=== PATIENT | female | born 1940 | race Caucasian/White ===

== ENCOUNTER 2017-09-18 12:57 | Emergency (ER) | payer MEDICARE ==
--- NOTE | 2017-09-18 13:45 | RAD ---
TWO VIEW CHEST: History: Cough. Comparison: 10-09-16 FINDINGS: Infiltrate noted in the anterior mid left lung on the prior study is not seen today. Lungs appear addison ar. Heart and mediastinum unremarkable. Osseous structures are unremarkable. IMPRESSION: Unremarkable chest. POS: [facility]
[2017-09-18 14:10] LABS: #Lymphocytes 0.4 thou/uL (1.20-3.40); #Monocytes 0.7 thou/uL (0.11-0.59); #Neutrophils 3.4 thou/uL (1.40-6.50); %Basophils 0.9 % (0.0-1.0); %Eosinophils 0.3 % (0.0-10.0); %Lymphocytes 9.5 % (21.0-51.0); %Monocytes 14.3 % (0.0-10.0); Hematocrit 35.7 % (36.0-47.0); Mean Platelet Volume 6.5 fL (7.4-10.4); Red Blood Cell (RBC) Count 3.82 mill/uL (4.20-5.40); White Blood Cell (WBC) Count 4.6 thou/uL (4.8-10.8)
[2017-09-18 14:28] LABS: ALT (SGPT) 60 U/L (8-55); AST (SGOT) 68 U/L (5-34); Alkaline Phosphatase 63 U/L (40-150); Anion Gap 12 mmol/L (10-20); BUN (Urea Nitrogen) 13 mg/dL (9.8-20.1); Bilirubin, Total 0.3 mg/dL (0.2-1.2); Calc. Creatinine Clearance 0 mL/min (70-130); Carbon Dioxide 24 mmol/L (23-31); Chloride 104 mmol/L (98-107); Estimated GFR-MDRD 76; Globulin 2.9 g/dL (2.4-3.5); Protein, Total 7.1 g/dL (6.0-8.3)
[2017-09-18 14:33] LABS: Troponin I Less than 0.010 ng/mL (< 0.028)
[2017-09-18 14:37] LABS: Anion Gap 11 mmol/L (-14-95); Lactate 2.22 mmol/L (0.50-2.20); POC Est. GFR-MDRD-African-Amer Greater than 60; POC Estimated GFR-MDRD Greater than 60; T. Carbon Dioxide 21.7 mmol/L (1.0-85.0); pH (Venous) 7.529 (7.35-7.45); vO2 Saturation-calc 99.6 % (0.0-100.0)
[2017-09-18] MEDS ORDERED: predniSONE 20 MG TAB ONE (15:18)
== END 2017-09-18 16:10 | disposition home or self-care (01) ==
LOC: ERS 12:57
DX: J44.1 Chronic obstructive pulmonary disease with (acute) exacerbation (principal); E03.9 Hypothyroidism, unspecified; E78.00 Pure hypercholesterolemia, unspecified; Z79.899 Other long term (current) drug therapy
CPT/HCPCS: 36415; 71020; 80053; 82330; 82553; 82803; 83605; 84484; 85025; 87040; 93005; 94640; J7506; J7620

== ENCOUNTER 2017-10-28 15:37 | Outpatient (CLI) | payer MEDICARE ==
--- NOTE | 2017-10-28 16:30 | ULT ---
RIGHT UPPER QUADRANT ULTRASOUND: Comparison: None. History: Right upper quadrant abdominal pain. Technique: Multiplanar grayscale and color doppler images were obtained in a right upper quadrant abd ominal ultrasound. FINDINGS: The liver demonstrates increased echogenicity without focal lesions or intrahepatic ductal dilatation . The gallbladder contains no shadowing stones, gallbladder wall thickening, or pericholecystic fluid . A small amount of sludge is seen in the gallbladder. The common bile duct is normal measuring 5 mm. The visualized portions of the pancreas are unremarkable. The right kidney is normal in echogenicity without hydronephrosis or calculus and measures 10.5 cm in length. IMPRESSION: 1. Fatty liver. 2. Gallbladder sludge. POS: [facility]
== END 2017-10-28 15:38 | disposition home or self-care (01) ==
LOC: ULT 15:37
PROVIDERS: ATTEND Nurse Practitioner Family
DX: R10.11 Right upper quadrant pain (principal); R14.0 Abdominal distension (gaseous); K76.0 Fatty (change of) liver, not elsewhere classified; K82.8 Other specified diseases of gallbladder
CPT/HCPCS: 76705

== ENCOUNTER 2017-12-23 12:49 | Outpatient (CLI) | payer MEDICARE, OTHER ==
[2017-12-23] MEDS ORDERED: Iopamidol 370 76% 100 ML VIAL ONE (13:14)
--- NOTE | 2017-12-23 16:15 | CT ---
CT OF THE THORAX WITH IV CONTRAST: Date: 12/23/17 INDICATION: Pleurisy, cough, asthma, infiltrate. COMPARISON: CT of the thorax dated 09/18/17. FINDINGS: There is scattered emphysema. Suspected area of subsegmental volume loss is seen within the right mid dle lobe, as well as portions of the lingula. No focal consolidation, pleural effusion, or pneumothor ax is evident. No definite suspicious focal pulmonary nodule is evident. There are scattered vascular calcifications involving the thoracic aorta. Visualized upper abdomen demonstrates a 3.0 mm nonobstructing left renal calculus. No definite acute osseous abnormality is evident. There is a prominent 11.4 x 6.7 cm intramuscular li greer within the lower aspect of the left latissimus dorsi. IMPRESSION: 1. Emphysema. 2. Intramuscular lipoma of left latissimus dorsi. 3. Left nephrolithiasis. POS: [facility]
== END 2017-12-23 12:50 | disposition home or self-care (01) ==
LOC: CT 12:49
PROVIDERS: ATTEND Nurse Practitioner Family
DX: J45.998 Other asthma (principal); R91.8 Other nonspecific abnormal finding of lung field; R05 Cough; D17.9 Benign lipomatous neoplasm, unspecified; J43.9 Emphysema, unspecified; N20.0 Calculus of kidney; Z87.09 Personal history of other diseases of the respiratory system
CPT/HCPCS: 71260; 82565

== ENCOUNTER 2018-05-04 15:03 | Emergency (ER) | payer MEDICARE ==
--- NOTE | 2018-05-04 15:58 | ULT ---
ULTRASOUND WITH DOPPLER DUPLEX VENOUS LOWER EXTREMITY RIGHT: HISTORY: A 77-year-old female with right lower extremity pain and swelling. TECHNIQUE: Color flow Doppler, spectral waveform analysis of pulsed Doppler, and carter-scale imaging with lloyd lopez and augmentation were used to evaluate the right common femoral, femoral, popliteal, posterior t ibial, and superficial femoral, veins; and the proximal portions of the profunda femoral and greater saphenous veins. FINDINGS: There is normal compressibility, demonstration of blood flow by color Doppler and pulsed Doppler, and response to augmentation in all interrogated veins. IMPRESSION: Negative. No deep vein thrombosis in the right lower extremity. jn [] POS: [facility]
== END 2018-05-04 16:07 | disposition home or self-care (01) ==
LOC: ERS 15:03
DX: M79.604 Pain in right leg (principal); J45.909 Unspecified asthma, uncomplicated; E03.9 Hypothyroidism, unspecified; E78.00 Pure hypercholesterolemia, unspecified

== ENCOUNTER 2018-12-15 14:52 | Outpatient (CLI) | payer MEDICARE ==
--- NOTE | 2018-12-15 16:23 | ULT ---
CAROTID ULTRASOUND WITH SIMMONS SCALE AND DOPPLER DUPLEX COLOR FLOW IMAGING SPECTRAL ANALYSIS PERFORMED: DATE: 12/15/18 CLINICAL INDICATION: Hyperlipidemia. FINDINGS: There is scattered mild atherosclerotic calcification of the carotid arteries. PEAK SYSTOLIC VELOCITY (CM/S): Right CCA 88 Left CCA 76 Right ICA 59 Left ICA 95 There is antegrade flow within the visualized bilateral vertebral arteries. IMPRESSION: 1. No hemodynamically significant stenosis of the right internal carotid artery. 2. No hemodynamically significant stenosis of the left internal carotid artery. POS: [facility]
== END 2018-12-15 14:53 | disposition home or self-care (01) ==
LOC: BICULT 14:52
PROVIDERS: ATTEND Psychiatry & Neurology Neurology
DX: I73.9 Peripheral vascular disease, unspecified (principal); G45.9 Transient cerebral ischemic attack, unspecified; E78.5 Hyperlipidemia, unspecified
CPT/HCPCS: 93880

== ENCOUNTER 2019-01-28 06:37 | Day surgery (SDC) | payer MEDICARE ==
[2019-01-27 12:53] VITALS: BMI 31.0
[2019-01-28] MEDS ORDERED: Oxymetazoline HCl 0.05% ( 15 ML ) ONE ×2 (07:27→07:58)
[2019-01-28 07:50] LABS: Hemoglobin 11.9 g/dL (12.0-16.0)
[2019-01-28] MEDS ORDERED: Lidocaine 1% w/Epinephrine 1:100K 20 ML VIAL ONE (07:58)
[2019-01-28] MEDS ORDERED: Fentanyl 100 MCG/2 ML VIAL ONE ×2 (08:02→09:12)
[2019-01-28 08:07] LABS: Anion Gap 11 mmol/L (10-20); BUN (Urea Nitrogen) 11 mg/dL (9.8-20.1); Calc. Creatinine Clearance 82 mL/min (70-130); Calcium 9.4 mg/dL (7.8-10.44); Carbon Dioxide 29 mmol/L (23-31); Chloride 103 mmol/L (98-107); Estimated GFR-MDRD 79; Glucose 109 mg/dL (83-110); Potassium 3.7 mmol/L (3.5-5.1); Sodium 139 mmol/L (136-145)
[2019-01-28] MEDS ORDERED: Labetalol HCl 100 MG/20 ML VIAL ONE (09:32)
[2019-01-28] MEDS ORDERED: Lidocaine 1% PF 5 ML VIAL ONE (11:16)
[2019-01-28] MEDS ORDERED: PROPOFOL 200 MG/20 ML VIAL ONE (11:16)
[2019-01-28] MEDS ORDERED: Succinylcholine Chloride 20 MG/ML 10 ml SYRINGE FS ONE (11:16)
[2019-01-28] MEDS ORDERED: ePHEDrine 50 MG/ML VIAL ONE (11:16)
--- NOTE | 2019-01-28 21:54 | OP ---
DATE OF PROCEDURE: 01/28/2019 PREOPERATIVE DIAGNOSES: 1. Chronic rhinosinusitis. 2. Nasal polyposis, severe. 3. Nasal obstruction. 4. Bilateral inferior turbinate hypertrophy. POSTOPERATIVE DIAGNOSES: 1. Chronic rhinosinusitis. 2. Nasal polyposis, severe. 3. Nasal obstruction. 4. Bilateral inferior turbinate hypertrophy. PROCEDURES PERFORMED: 1. Bilateral endoscopic sinus surgery, total ethmoidectomies. 2. Bilateral endoscopic sinus surgery, maxillary antrostomies with removal of tissue on the right. 3. Bilateral endoscopic sinus surgery, frontal sinusotomies. 4. Bilateral inferior turbinate submucosal resection. 5. Endoscopic right nasal polypectomy. ESTIMATED BLOOD LOSS: 50 mL. COMPLICATIONS: None. ANESTHESIA: GETA. DESCRIPTION OF PROCEDURE: The patient was taken to operating room, placed supine on the table. General endotracheal anesthesia was obtained by the anesthesia staff. A tube was secured in the left lower lip and the patient was placed in a beach chair position. Following this, Afrin pledgets were placed in nasal cavity as the patient was prepped and draped for standard nasal procedure. Following this, Afrin pledgets were removed. 1% lidocaine with 1:100,000 epinephrine was injected into the inferior turbinates, middle turbinates, and lateral nasal wall bilaterally. On the right side, there were large nasal polyps protruding from the middle meatus extending into the nasal cavity and even extending into the right nasopharynx. These were injected with 1% lidocaine with 1:100,000 epinephrine. These were removed using a Blakesley forceps and microdebriders on the right side. Following this, middle turbinates were identified bilaterally and were gently medialized using a Beatty elevator. Following this, the uncinate process was identified bilaterally and was anteriorly fractured using a ball-ended probe. Following this, a straight microdebrider was used to remove the uncinate process bilaterally as well as remove nasal polyps from the right nasal cavity. Following this, the natural maxillary sinus ostia was gently identified using a ball-ended probe and a curved microdebrider and straight Blakesley forceps were used to open the maxillary sinus ostia bilaterally. On the right side, the right maxillary sinus was nearly completely opacified with polypoid tissue. This was removed using the curved microdebrider and curved suction. Following this, the ethmoidal bulla was identified bilaterally and was punctured on its medial and inferior aspects and was removed using the microdebrider. Following this, the grand lamella was identified and was punctured into the posterior ethmoidal cells, working from posterior to anterior, the ethmoidal cells were opened in a mucosal sparing technique using the microdebrider and up-biting Blakesley forceps. Following this, the 45-degree endoscope along with the curved microdebrider was used to further open the frontal recess cells and open the frontal sinus ostia bilaterally. Following this, the inferior turbinates were punctured on the anterior and inferior aspects with the submucosal microdebrider and submucosal resection was performed of the anterior and inferior portions of the inferior turbinates bilaterally. The patient tolerated the procedure well. Job ID: [id number] [facility]
== END 2019-01-28 11:12 | disposition home or self-care (01) ==
LOC: SDC 06:37
PROVIDERS: ATTEND Otolaryngology Plastic Surgery within the Head & Neck
PROC: 09TL7ZZ Resection of Nasal Turbinate, Via Natural or Artificial Opening (ICD-10-PCS; principal; 2019-01-28)
PROC: 09TV8ZZ Resection of Left Ethmoid Sinus, Via Natural or Artificial Opening Endoscopic (ICD-10-PCS; 2019-01-28)
PROC: 09TU8ZZ Resection of Right Ethmoid Sinus, Via Natural or Artificial Opening Endoscopic (ICD-10-PCS; 2019-01-28)
PROC: 09BR8ZZ Excision of Left Maxillary Sinus, Via Natural or Artificial Opening Endoscopic (ICD-10-PCS; 2019-01-28)
PROC: 09BQ8ZZ Excision of Right Maxillary Sinus, Via Natural or Artificial Opening Endoscopic (ICD-10-PCS; 2019-01-28)
PROC: 099T8ZZ Drainage of Left Frontal Sinus, Via Natural or Artificial Opening Endoscopic (ICD-10-PCS; 2019-01-28)
PROC: 099S8ZZ Drainage of Right Frontal Sinus, Via Natural or Artificial Opening Endoscopic (ICD-10-PCS; 2019-01-28)
DX: J32.0 Chronic maxillary sinusitis (principal); J34.3 Hypertrophy of nasal turbinates; J34.2 Deviated nasal septum; J33.9 Nasal polyp, unspecified; J34.89 Other specified disorders of nose and nasal sinuses; J45.909 Unspecified asthma, uncomplicated; E03.9 Hypothyroidism, unspecified; E78.5 Hyperlipidemia, unspecified; Z79.51 Long term (current) use of inhaled steroids; Z79.899 Other long term (current) drug therapy; Z88.1 Allergy status to other antibiotic agents; Z88.8 Allergy status to other drugs, medicaments and biological substances
CPT/HCPCS: 36415; 80048; 85014; 85018; J0131; J2001; J3010

== ENCOUNTER 2019-02-16 15:14 | Outpatient (CLI) | payer MEDICARE ==
--- NOTE | 2019-02-16 15:36 | RAD ---
RIGHT HIP 2 VIEWS: HISTORY: Right hip pain. FINDINGS/IMPRESSION: There are mild degenerative changes. No fracture, dislocation, or bony destruction is identified. POS: [facility]
== END 2019-02-16 15:15 | disposition home or self-care (01) ==
LOC: RAD-FRANK 15:14
PROVIDERS: ATTEND Nurse Practitioner Family
DX: M25.551 Pain in right hip (principal); M16.11 Unilateral primary osteoarthritis, right hip

== ENCOUNTER 2019-06-11 15:09 | Outpatient (CLI) | payer MEDICARE ==
--- NOTE | 2019-06-11 16:19 | RAD ---
CERVICAL SPINE RADIOGRAPH SERIES, AP, LATERAL STANDARD: 06/11/19 INDICATION: Pain. FINDINGS: Grade I/II spondylolisthesis at C3-4 is present and there is grade I spondylolisthesis at C4-5. Ther e is severe multilevel degenerative change throughout the cervical spine. Lateral mass of C1 are appr opriately aligned. The imaged aspects of the dens are intact. There is multilevel prominent facet os teoarthritis as well as multilevel disc degeneration, end plate irregularity and marginal osteophyte formation. IMPRESSION: Severe degenerative disease of the cervical spine with associated listheses at C3-4 and C4-5. POS: [facility]
== END 2019-06-11 15:10 | disposition home or self-care (01) ==
LOC: RAD-FRANK 15:09
PROVIDERS: ATTEND Nurse Practitioner Family
DX: M54.2 Cervicalgia (principal); M62.838 Other muscle spasm; M50.30 Other cervical disc degeneration, unspecified cervical region; M43.12 Spondylolisthesis, cervical region
CPT/HCPCS: 72040

== ENCOUNTER 2019-07-30 10:25 | Outpatient (CLI) | payer MEDICARE ==
--- NOTE | 2019-07-30 11:48 | RAD ---
CERVICAL SPINE 4 VIEWS: HISTORY: Neck pain. FINDINGS: There are moderately severe degenerative changes in the lower cervical spine with loss of disk space and anterior bridging osteophytes at C5-6 and C6-7 levels. There is anterior listhesis at C3-4 and at C4-5 and there is slight anterior listhesis at C7-T1. Anterolisthesis at C3-4 and C4-5 exacerbates slightly with flexion. Facet hypertrophy is noted in th e mid cervical spine bilaterally. IMPRESSION: Moderate degenerative changes with anterolisthesis as described above. POS: [facility]
--- NOTE | 2019-07-30 12:48 | MRI ---
MRI CERVICAL SPINE NONCONTRAST: HISTORY: Neck pain. FINDINGS: There is reversal of the normal lordotic curvature. Minimal vertebral body height loss at the C5 lev el without edema. There is desiccation of all of the intervertebral disks. Cervicothoracic junction is intact. C2-3: Osteophytosis. Central canal and neural foramina are patent. C3-4: Mild disk space narrowing. Degenerative spondylolisthesis at 0.5 cm. Mild pseudobulge of the disk space narrowing. Degenerative spondylolisthesis at 0.5 cm. Mild pseudobulge of the disk. Cir cumferential degenerative changes. Severe stenosis of the central canal. No abnormal signal within the spinal cord. Severe stenosis of each neural foramen. C4-5: Osteophytosis of each facet. Central canal and neural foramen are patent. C5-6: Disk space narrowing. Posterior osteophyte/disk complex and circumferential degenerative robertson ges. Mild stenosis of the central canal and right neural foramen. C6-7: Minimal osteophyte/disk complex. Central canal and neural foramen are patent. C7-T1: Central canal and neural foramen are patent. IMPRESSION: Degenerative changes most severe at the C3-4 level where there is severe stenosis of the central spin al canal and each neural foramen. No evidence of myelomalacia. POS: [facility]
== END 2019-07-30 10:26 | disposition home or self-care (01) ==
LOC: SCSMRI 10:25
PROVIDERS: ATTEND Nurse Practitioner Family
DX: M54.2 Cervicalgia (principal); R20.2 Paresthesia of skin; M79.603 Pain in arm, unspecified; M47.812 Spondylosis without myelopathy or radiculopathy, cervical region; M43.12 Spondylolisthesis, cervical region; M48.02 Spinal stenosis, cervical region
CPT/HCPCS: 72050; 72141

== ENCOUNTER 2019-09-11 14:02 | Outpatient (CLI) | payer MEDICARE ==
--- NOTE | 2019-09-11 14:48 | CT ---
CT CERVICAL SPINE WITHOUT CONTRAST: HISTORY: Pain. COMPARISON: None. FINDINGS: No craniocervical dissociation. Appropriate alignment of the lateral masses of C1 and C2 as well as t he facets. There is bilateral facet hypertrophy with remodeling involving the C2-C3, C3-C4, C4-C5 and C5-C6 levels. There is evidence of 3.1 mm of anterolisthesis of C3 upon C4 and 2 mm of anterolist hesis of C4 upon C5. Odontoid process is intact. Soft tissue neck structures: No mass, lymphadenopathy or hematoma. No prevertebral soft tissue swelli ng. Upper mediastinum and lung apices: Emphysematous changes in the visualized lung apices. Central spinal canal: Limited evaluation the contents of the central spinal canal and neural foramina due to technique. C2-C3: No high-grade central canal stenosis or high-grade foraminal narrowing. C3-C4: Broad-based disc bulge with at least mild central canal stenosis. Moderate right and moderate to severe left neural foraminal narrowing. C4-C5: Broad-based disc bulge with mild central canal stenosis. Bilaterally the neural foramina are p atent. C5-C6: Severe loss of disc space height. Broad-based disc bulge with at least mild central canal sten osis. Mild right foraminal narrowing. Left neural foramen is patent. C6-C7: Broad-based disc-osteophyte complex with at least mild central canal stenosis. Mild right neur al foraminal narrowing. Left neural foramen is patent. C7-T1: No significant central canal stenosis or significant neural foraminal narrowing. Vertebral bodies: Cervical spine vertebral body height is maintained. No fracture. IMPRESSION: 1. No fracture. 2. Multilevel degenerative changes of the cervical spine as described above. 3. Significant anterolisthesis, likely on the basis of degenerative change. If there is concern for l igamentous injury, consider MRI. Transcribed Date/Time: 09/11/2019 3:23 PM
== END 2019-09-11 14:03 | disposition home or self-care (01) ==
LOC: BICCT 14:02
PROVIDERS: ATTEND Surgery
DX: M50.10 Cervical disc disorder with radiculopathy, unspecified cervical region (principal); M43.12 Spondylolisthesis, cervical region; M48.02 Spinal stenosis, cervical region; M25.511 Pain in right shoulder; M47.22 Other spondylosis with radiculopathy, cervical region
CPT/HCPCS: 72125

== ENCOUNTER 2019-10-21 10:09 | Outpatient (CLI) | payer MEDICARE ==
--- NOTE | 2019-10-21 11:18 | RAD ---
CHEST TWO VIEWS: HISTORY: Preoperative evaluation. (dictation ended) POS: [facility]
--- NOTE | 2019-10-22 06:59 | RAD ---
CHEST 2 VIEWS: Date: 10/21/2019 HISTORY: Preoperative evaluation. FINDINGS: Mild right hemidiaphragm elevation. Minimal linear and parenchymal changes in the lung bases, evidenc e for some mild chronic change. No confluent pneumonia, overt edema, or pleural effusion. IMPRESSION: Mild chronic lung changes. No significant new process from prior exam, 09/18/2017. Atherosclerosis of aorta. POS: [facility]
== END 2019-10-21 10:10 | disposition home or self-care (01) ==
LOC: RAD-FRANK 10:09
PROVIDERS: ATTEND Nurse Practitioner Family
DX: Z01.818 Encounter for other preprocedural examination (principal); Z87.09 Personal history of other diseases of the respiratory system; M50.10 Cervical disc disorder with radiculopathy, unspecified cervical region; M43.12 Spondylolisthesis, cervical region; M25.511 Pain in right shoulder; M06.00 Rheumatoid arthritis without rheumatoid factor, unspecified site; E03.4 Atrophy of thyroid (acquired); I10 Essential (primary) hypertension; I73.9 Peripheral vascular disease, unspecified; J32.9 Chronic sinusitis, unspecified; I70.0 Atherosclerosis of aorta
CPT/HCPCS: 71046; 80053; 85025

== ENCOUNTER 2019-11-19 06:13 | Inpatient (IN) | payer MEDICARE ==
[2019-11-18 11:19] VITALS: BMI 30.2
[2019-11-19] MEDS ORDERED: Fentanyl 100 MCG/2 ML VIAL ONE ×3 (06:18→11:22)
[2019-11-19] MEDS ORDERED: Thrombin 5000 UNITS/5 ML VIAL ONE ×2 (06:42→09:04)
[2019-11-19 06:56] LABS: #Basophils 0.1 thou/uL (0.0-0.2); #Eosinphils 0.2 thou/uL (0.0-0.7); #Lymphocytes 1.5 thou/uL (1.20-3.40); #Monocytes 0.5 thou/uL (0.11-0.59); #Neutrophils 4.3 thou/uL (1.40-6.50); %Basophils 1.5 % (0.0-1.0); %Eosinophils 3.1 % (0.0-10.0); %Lymphocytes 23.1 % (21.0-51.0); %Monocytes 7.7 % (0.0-10.0); %Neutrophils 64.6 % (42.0-75.0); Mean Corpuscular Hemoglobin 30.5 pg (27.0-31.0); Mean Corpuscular Volume 92.2 fL (78.0-98.0); Mean Platelet Volume 6.6 fL (7.4-10.4); Platelet Count 343 thou/uL (130-400); RBC Distribution Width 11.6 % (11.5-14.5); Red Blood Cell (RBC) Count 4.26 mill/uL (4.20-5.40); White Blood Cell (WBC) Count 6.6 thou/uL (4.8-10.8)
[2019-11-19 07:05] LABS: PTT 33.6 SEC (22.9-36.1); Prothrombin Time 12.8 SEC (12.0-14.7)
[2019-11-19 07:17] LABS: Anion Gap 14 mmol/L (10-20); BUN (Urea Nitrogen) 17 mg/dL (9.8-20.1); Calc. Creatinine Clearance 73 mL/min (70-130); Calcium 9.2 mg/dL (7.8-10.44); Carbon Dioxide 27 mmol/L (23-31); Chloride 105 mmol/L (98-107); Estimated GFR-MDRD 70; Glucose 124 mg/dL (83-110); Potassium 3.9 mmol/L (3.5-5.1); Sodium 142 mmol/L (136-145)
[2019-11-19] MEDS ORDERED: Promethazine HCl 25 MG/ML VIAL IM PRN (10:16)
[2019-11-19] MEDS ORDERED: Promethazine HCl 25 MG/ML VIAL SLOW IVP PRN (10:16)
[2019-11-19] MEDS ORDERED: Morphine Sulfate 2 MG/ML SYRINGE SLOW IVP PRN (10:16)
[2019-11-19] MEDS ORDERED: Ondansetron HCl/PF 4 MG/2 ML Vial IVP PRN (10:16)
[2019-11-19] MEDS ORDERED: Milk Of Magnesia 30 ML UDCUP PO PRN (10:43)
[2019-11-19] MEDS ORDERED: Mag-Al 1200 mg/1200 mg/30 ML UDCUP PO PRN (10:43)
[2019-11-19] MEDS ORDERED: Morphine 2 MG/ML SYRINGE SLOW IVP PRN (10:43)
[2019-11-19] MEDS ORDERED: Ondansetron PF 4 MG/2 ML Vial IVP PRN (10:43)
[2019-11-19] MEDS ORDERED: Acetaminophen/Codeine 30-300mg Tablet PO PRN (10:43)
[2019-11-19] MEDS ORDERED: traMADol HCl 50 MG TAB PO PRN (10:43)
[2019-11-19] MEDS ORDERED: tiZANidine HCl 4 MG TAB PO PRN (10:43)
[2019-11-19] MEDS ORDERED: Acetaminophen 325 MG TAB PO PRN (10:43)
[2019-11-19] MEDS ORDERED: Bisacodyl 10 MG SUPP PR PRN (10:43)
[2019-11-19] MEDS ORDERED: Fleet Enema 133 ML BOT PR PRN (10:43)
[2019-11-19] MEDS ORDERED: Fluticasone Propionate Nasal Spray 16 gm Bottle NASAL PRN (10:45)
[2019-11-19] MEDS ORDERED: Dexamethasone 20 MG/5 ML VIAL ONE (10:55)
[2019-11-19] MEDS ORDERED: EPHEDRINE 25 MG/5 ML SYRINGE ONE (10:55)
[2019-11-19] MEDS ORDERED: Rocuronium Bromide 10 MG/ML (10ML VIAL) ONE (10:55)
[2019-11-19] MEDS ORDERED: Glycopyrrolate 0.2 MG/ML 5 ML SYRINGE ONE (10:55)
[2019-11-19] MEDS ORDERED: PHENYLEPHRINE-NS 100 MCG/ML 10 ML SYRINGE ONE (10:55)
[2019-11-19] MEDS ORDERED: PROPOFOL 200 MG/20 ML VIAL ONE (10:55)
[2019-11-19] MEDS ORDERED: Ondansetron PF 4 MG/2 ML Vial ONE (10:55)
[2019-11-19] MEDS ORDERED: Lidocaine 1% PF 5 ML VIAL ONE (10:55)
[2019-11-19] MEDS: Sodium Chloride 0.9% 1,000 ML IV SCH ×2 (13:14→23:22)
[2019-11-19] MEDS: HYDROcodone/Acetaminophen 7.5/325 mg Tablet PO PRN ×3 (13:28→21:33)
--- NOTE | 2019-11-19 15:16 | OP ---
DATE OF PROCEDURE: 11/19/2019 LOCATION: OR 11. PLASTER MIXER: Sonny Mac PA-C. PREPROCEDURE DIAGNOSES: 1. Multilevel cervical stenosis with cervical deformity. 2. Anterolisthesis with spinal cord compression and nerve root compression. POSTPROCEDURE DIAGNOSES: 1. Multilevel cervical stenosis with cervical deformity. 2. Anterolisthesis with spinal cord compression and nerve root compression. PROCEDURES PERFORMED: 1. Anterior C3-C4, C4-C5, and C5-C6 diskectomies for decompression of spinal cord and nerve roots. 2. Placement of interbody spacer, packed with local bone autograft, obtained from same incision, and allograft, C3-C4, C4-C5, C5-C6. 3. Anterior cervical plate and screw fixation, C3, C4, C5, C6. 4. Use of operative microscope for microdissection. DESCRIPTION OF PROCEDURE: After informed consent was obtained from the patient, the patient was brought to the OR. Proper patient, pause, and identification were carried out. She was placed under excellent general endotracheal anesthesia and positioned supine on the OR table. Cervical spine was kept in neutral position. We identified the C3, C4, C5, C6 segments and an oblique jose was made in the anterior right neck to allow for approach to these segments. This region was sterilely cleansed, prepared, and draped. Proper patient, pause, and identification were carried out. The wound was then opened with a combination of sharp, monopolar, and blunt dissection. We proceeded lateral to the larynx and pharynx and medial to the right carotid sheath. We identified the prevertebral layer of deep cervical fascia. Following localization, we then performed a diskectomy with distraction at C3-C4 and the use of operative microscope for microdissection. We had excellent decompression of common dural tube and C4 nerve roots bilaterally. The endplates were prepared and interbody spacer packed with graft, this was placed at C3-C4. We then did the same thing at C4-C5 with distraction, decompression of spinal cord nerve roots with preparation of endplates, placement of interbody spacer, packed with graft at C4-C5 and again at C5-C6. Distraction was released at the end. Anterior cervical plate and screw fixation occurred at C3, C4, C5, C6 with final tightening. Meticulous hemostasis and copious irrigation occurred throughout. The wound was then closed in anatomic layers over drain. The patient emerged from anesthesia. Job ID: [id number]
--- NOTE | 2019-11-19 16:59 | EKG ---
Test Reason : PREOP Blood Pressure : / mmHG Vent. Rate : 078 BPM Atrial Rate : 078 BPM P-R Int : 214 ms QRS Dur : 086 ms QT Int : 382 ms P-R-T Axes : 065 029 051 degrees QTc Int : 435 ms Sinus rhythm with 1st degree A-V block Nonspecific ST abnormality Abnormal ECG Confirmed by ASM MCDOWELL ([id number]) on 11/19/2019 4:58:59 PM Referred By: FELICITAS Confirmed By:SAM MCDOWELL
[2019-11-19] MEDS: CEFAZOLIN 2 GM in Premix Bag 1 BAG IVPB SCH ×2 (17:04→23:21)
[2019-11-19] MEDS: Mometasone/Formoterol 120 PUFF INHALER INH SCH (19:51)
[2019-11-19] MEDS: Atorvastatin Calcium 10 MG TAB PO SCH (21:33)
[2019-11-20] MEDS: HYDROcodone/Acetaminophen 7.5/325 mg Tablet PO PRN ×5 (01:23→22:17)
[2019-11-20] MEDS: Levothyroxine Sodium 25 MCG TAB PO SCH (05:47)
[2019-11-20] MEDS: Mometasone/Formoterol 120 PUFF INHALER INH SCH ×2 (07:26→18:32)
[2019-11-20] MEDS: CEFAZOLIN 2 GM in Premix Bag 1 BAG IVPB SCH (08:55)
[2019-11-20] MEDS: Loratadine 10 MG TAB PO SCH (08:56)
[2019-11-20] MEDS: Hydrochlorothiazide 25 MG TAB PO SCH (08:56)
[2019-11-20] MEDS: Losartan 25 MG TAB PO SCH (08:56)
[2019-11-20] MEDS: Multivit, Therapeutic 1 TAB PO SCH (08:56)
[2019-11-20] MEDS: Estradiol 1 MG TAB PO SCH (08:57)
--- NOTE | 2019-11-20 08:57 | PRG ---
DATE OF SERVICE: 11/20/2019 SUBJECTIVE: The patient is an 79-year-old female, postoperative day #1, status post C3 through C6 anterior diskectomy and fusion. Following the surgery, she was transitioned to the med/surg floor, where her pain has been well-controlled with p.o. medications, she has had some mild dysphagia, but is tolerating a soft diet. She has a HANH drain in place with only 20 mL out overnight. She has been afebrile overnight and her vitals otherwise been stable. OBJECTIVE: On exam this morning, she is awake and alert, no acute distress. She has free active range of motion of all extremities. No focal motor weakness. Her incision is clean, dry, and intact. She has some mild hoarseness to her voice. PLAN: We will go ahead and remove her HANH drain today. We will have her work with physical therapy later today. Family is hopeful that the patient may qualify for inpatient rehabilitation because she also cares for her 91-year-old at home. We will go ahead and do a rehab screen and continue to monitor her progress closely and decide on rehab vs home with HH soon. We discussed options of steroids if her dysphagia worsens, but right now she is tolerating this well. Job ID: [id number] [facility]
[2019-11-20] MEDS: Sodium Chloride 0.9% 1,000 ML IV SCH (13:38)
[2019-11-20] MEDS: Atorvastatin Calcium 10 MG TAB PO SCH (22:17)
[2019-11-21] MEDS: Sodium Chloride 0.9% 1,000 ML IV SCH ×2 (02:18→16:44)
[2019-11-21] MEDS: HYDROcodone/Acetaminophen 7.5/325 mg Tablet PO PRN ×5 (02:27→20:37)
[2019-11-21] MEDS: Levothyroxine Sodium 25 MCG TAB PO SCH (07:00)
[2019-11-21] MEDS: Mometasone/Formoterol 120 PUFF INHALER INH SCH ×2 (07:13→19:01)
[2019-11-21] MEDS: Hydrochlorothiazide 25 MG TAB PO SCH (08:57)
[2019-11-21] MEDS: Multivit, Therapeutic 1 TAB PO SCH (08:57)
[2019-11-21] MEDS: Estradiol 1 MG TAB PO SCH (08:57)
[2019-11-21] MEDS: Loratadine 10 MG TAB PO SCH (08:58)
[2019-11-21] MEDS: Losartan 25 MG TAB PO SCH (08:58)
[2019-11-21] MEDS ORDERED: Dexamethasone 4 mg/ml Vial SLOW IVP SCH (10:00)
--- NOTE | 2019-11-21 10:05 | PRG ---
DATE OF SERVICE: 11/21/2019 SUBJECTIVE: The patient is now postoperative day #2, status post C3 through C6 ACDF. Overnight, she has had some increased shortness of breath and some increased hoarseness. She was 90% on room air this morning, so placed on 2 L nasal cannula. She otherwise has been ambulatory in the department, mobilizing appropriately. She was evaluated for possible inpatient rehabilitation, but unfortunately did not qualify. OBJECTIVE: On exam this morning, she is awake and alert, in no acute distress. She has free active range of motion of all extremities. No focal motor weakness. No reflex asymmetry. Her voice is slightly increased in hoarseness. She was 91% on room air during my exam and reporting some sob but overall does not appear significantly labored. PLAN: We will go ahead and treat her with 10 mg of IV Decadron for her dysphagia and increased hoarseness. We will get a chest x-ray to evaluate for her increased shortness of breath, and I have advised her to increase use of her incentive spirometer. I have asked the Medicine Team to also take a look at her for any ongoing medical management. Job ID: [id number] [facility]
[2019-11-21] MEDS ORDERED: hydrALAZINE 20 MG/ML VIAL SLOW IVP PRN (10:38)
--- NOTE | 2019-11-21 11:44 | RAD ---
Exam: Chest one view: HISTORY: Trouble breathing COMPARISON: 10/21/2019 FINDINGS: Developing parenchymal change in the right infrahilar region with mild right hemidiaphragm elevation concerning for right lower lobe pneumonia and/or atelectasis. Stable appearing left chest. IMPRESSION: Developing right infrahilar parenchymal changes evidence for pneumonia and/or atelectasis. Continued short-term follow-up for clearing or stability.
--- NOTE | 2019-11-21 14:16 | CON ---
DATE OF CONSULTATION: PRIMARY CARE PROVIDER: LISBET Bell CHIEF COMPLAINT: Management of medical comorbidities. HISTORY OF PRESENT ILLNESS: Ms. Goyal is a pleasant 79-year-old lady, who was seen at [facility] on November 21, 2019. On November 19, she underwent ACDF procedure. Hospitalist Service was consulted by Neurosurgery Service for management of medical comorbidities. Ms. Jyotsna Robert denies any chest pain. She reports that she started feeling short of breath since last night. She also reports cough that is productive of yellow sputum. She denies any fevers. She denies any abdominal pain. She reports that shortness of breath is worse with exertion. REVIEW OF SYSTEMS: All systems were reviewed and found to be negative except for pertinent positives mentioned above. PAST MEDICAL HISTORY: 1. Hypertension. 2. Dyslipidemia. 3. Hypothyroidism. 4. Asthma. PAST SURGICAL HISTORY: 1. Appendectomy. 2. Tonsillectomy. 3. Hysterectomy. 4. ACDF procedure. FAMILY HISTORY: No family history of premature coronary artery disease. ALLERGIES: CLINDAMYCIN AND TIOTROPIUM. HOME MEDICATIONS: 1. Estradiol 0.5 mg daily. 2. Fatemeh Allergy 180 mg daily. 3. Flonase nasal spray 1 spray to each naris daily. 4. Hydrochlorothiazide 25 mg daily. 5. Synthroid 25 mcg daily. 6. Losartan 25 mg daily. 7. Multivitamins 1 capsule daily. 8. Zocor 20 mg at bedtime. 9. Symbicort 2 puffs 2 times a day. 10. Vitamin E 1000 units daily. 11. Combivent p.r.n. SOCIAL HISTORY: The patient is an ex-smoker. No history of alcohol or recreational drug use. PHYSICAL EXAMINATION: GENERAL: Ms. Jyotsna Robert is awake and alert, not in acute distress. She is obese with a BMI of 30.1. VITAL SIGNS: Blood pressure is 154/67, pulse 85, respiratory rate 18, and oxygen saturation 95% on room air. She is afebrile. EYES: No scleral icterus. No conjunctival pallor. ENT: Moist mucosal membranes. No oropharyngeal erythema or exudates. NECK: Dressing over the neck. Trachea is midline. RESPIRATORY: Accessory muscles of breathing are not active. Chest wall movements are symmetric bilaterally. Lung examination reveals occasional expiratory wheeze. ABDOMEN: Soft, nontender. Bowel sounds are heard. NEUROLOGIC: Cranial nerves 2 through 12 are intact. MUSCULOSKELETAL: Power is 5/5 in all 4 extremities. SKIN: No rashes or subcutaneous nodules. LYMPHATIC: No lymphadenopathy. PSYCHIATRIC: Normal mood, normal affect. The patient is oriented to person, place, and time. ASSESSMENT AND PLAN: Ms. Jyotsna Robert is a pleasant 79-year-old lady, who was seen at [facility]. Her problem list includes: 1. Hypertension: Blood pressures are slightly elevated. I will add p.r.n. IV hydralazine for management of blood pressure spikes. We will monitor vital signs and titrate antihypertensives as needed. 2. Dyslipidemia: Continue statin. 3. Hypothyroidism: Appears to be stable, continue Synthroid. 4. Shortness of breath: Etiology is unclear at this time. We will obtain a chest x-ray to rule out infection. The patient is maintaining good oxygen saturations. Further management depending on chest x-ray findings. Many thanks for allowing me to participate in your patient's care. Please feel free to contact me with any questions or concerns. LEVEL OF RISK: Moderate. LEVEL OF COMPLEXITY: Moderate. Job ID: [id number]
[2019-11-21] MEDS: Atorvastatin Calcium 10 MG TAB PO SCH (20:37)
[2019-11-22] MEDS: HYDROcodone/Acetaminophen 7.5/325 mg Tablet PO PRN ×3 (01:47→11:27)
[2019-11-22] MEDS: Sodium Chloride 0.9% 1,000 ML IV SCH (06:07)
[2019-11-22] MEDS: Levothyroxine Sodium 25 MCG TAB PO SCH (06:07)
[2019-11-22] MEDS: Mometasone/Formoterol 120 PUFF INHALER INH SCH (07:02)
[2019-11-22 07:18] VITALS: BP 118/67; TEMP 98.8
[2019-11-22] MEDS: Losartan 25 MG TAB PO SCH (09:07)
[2019-11-22] MEDS: Hydrochlorothiazide 25 MG TAB PO SCH (09:08)
[2019-11-22] MEDS: Multivit, Therapeutic 1 TAB PO SCH (09:09)
[2019-11-22] MEDS: Loratadine 10 MG TAB PO SCH (09:09)
[2019-11-22] MEDS: Estradiol 1 MG TAB PO SCH (09:09)
--- NOTE | 2019-11-23 12:03 | DIS ---
DATE OF ADMISSION: 11/19/2019 DATE OF DISCHARGE: 11/22/2019 The patient is an 79-year-old female, who underwent C3 through C6 ACDF on 11/19/2019. Following the surgery, she was transitioned to the Med/Surg floor. Her pain has been well-controlled with p.o. medications, she has been tolerating regular diet, and she has been voiding appropriately. She did have some hoarseness and some tightness to the throat and this was treated with Decadron with improvement. She also had some increased shortness of breath on postoperative day #2. This was evaluated by the Medical Team with chest x-ray, with noted possible right lower lobe early pneumonia versus atelectasis. The patient was started on Levaquin and p.r.n. nasal cannula for shortness breath and improved significantly over this next day. This morning, the patient reports she is feeling much better and she would like to go home. I have discussed home care precautions and will have the patient follow up with Dr. Dobbs in 2 weeks. She will be treated by the Medicine Team with Levaquin for the next week as well. Job ID: [id number]
== END 2019-11-22 14:00 | disposition home or self-care (01) | DRG 471 ==
LOC: SURG A 06:13
PROVIDERS: ADMIT Surgery; ATTEND Surgery
PROC: 0RG20A0 Fusion of 2 or more Cervical Vertebral Joints with Interbody Fusion Device, Anterior Approach, Anterior Column, Open Approach (ICD-10-PCS; principal; 2019-11-19)
PROC: 0RB30ZZ Excision of Cervical Vertebral Disc, Open Approach (ICD-10-PCS; 2019-11-19)
PROC: 01N10ZZ Release Cervical Nerve, Open Approach (ICD-10-PCS; 2019-11-19)
PROC: 00NW0ZZ Release Cervical Spinal Cord, Open Approach (ICD-10-PCS; 2019-11-19)
DX: M48.02 Spinal stenosis, cervical region (principal); J18.9 Pneumonia, unspecified organism; M50.01 Cervical disc disorder with myelopathy, high cervical region; J98.11 Atelectasis; M50.11 Cervical disc disorder with radiculopathy, high cervical region; I10 Essential (primary) hypertension; E78.5 Hyperlipidemia, unspecified; I73.9 Peripheral vascular disease, unspecified; J43.9 Emphysema, unspecified; J30.2 Other seasonal allergic rhinitis; E03.9 Hypothyroidism, unspecified; M19.90 Unspecified osteoarthritis, unspecified site; Z87.891 Personal history of nicotine dependence; Z88.8 Allergy status to other drugs, medicaments and biological substances; Z88.1 Allergy status to other antibiotic agents; Z79.899 Other long term (current) drug therapy; Z79.51 Long term (current) use of inhaled steroids; Z79.890 Hormone replacement therapy; R13.10 Dysphagia, unspecified
CPT/HCPCS: 36415; 71045; 76000; 80048; 85025; 85610; 85730; 93005; 93010; 94640; C1776; J0690; J1100; J1956; J2001; J2270; J2405; J2704; J3010; J3490; J7620

== ENCOUNTER 2019-12-26 15:59 | Inpatient (IN) | payer MEDICARE, OTHER ==
[2019-12-26 16:44] LABS: Hemoglobin 11.7 g/dL (12.0-16.0); Mean Corpuscular HGB CONC 33.2 g/dL (32.0-36.0); Mean Corpuscular Hemoglobin 30.2 pg (27.0-31.0); Mean Platelet Volume 6.6 fL (7.4-10.4); Platelet Count 368 thou/uL (130-400); RBC Distribution Width 11.6 % (11.5-14.5); Red Blood Cell (RBC) Count 3.88 mill/uL (4.20-5.40); White Blood Cell (WBC) Count 19.9 thou/uL (4.8-10.8)
--- NOTE | 2019-12-26 16:46 | RAD ---
EXAM: CHEST ONE VIEW HISTORY: Sudden onset of chest pain and popping sensation in chest. Productive cough. COMPARISON: 11/21/2019 FINDINGS: The cardiac silhouette and pulmonary vasculature is within normal limits. There is hazy density overl olivia the lower aspect mid lung zones bilaterally which is most likely attributable to overlying soft tissue density. No consolidation or pleural fluid is seen. Vascular calcifications are seen in t he thoracic aorta. Postsurgical changes lower cervical spine are again seen. No other interval change. IMPRESSION: No acute cardiopulmonary process.
[2019-12-26 17:01] LABS: Band 26 % (5-11); Eosinophils 2 % (0-10); Hypochromia SLIGHT = 6-15 cells (100X) (0-5/hpf); Lymphocytes 9 % (21-51); MDiff Complete? YES; Monocytes 5 % (0-10); Neutrophil 56 % (42-75); Platelet Morphology Comment Appears Adequate; Polychromasia SLIGHT = 2-3 cells (100X) (0-2/hpf); Reactive Lymphocytes 2 % (0-10); Tear Drops SLIGHT = 2-5 cells (100X) (0-1/hpf)
[2019-12-26 17:06] LABS: Bilirubin Negative (Negative); Blood, Urine Negative (Negative); Clarity Clear (Clear); Glucose, Urine (Dipstick) Normal (Negative); Leukocyte Negative Leu/uL (Negative); Nitrite Negative (Negative); Protein, Urine (Dipstick) 10 mg/dL (Neg-Trace); Urobilinogen Normal mg/dL (Less than 2)
[2019-12-26 17:16] LABS: ALT (SGPT) 22 U/L (8-55); AST (SGOT) 25 U/L (5-34); Albumin 4.1 g/dL (3.4-4.8); Alkaline Phosphatase 92 U/L (40-110); Anion Gap 17 mmol/L (10-20); BUN (Urea Nitrogen) 13 mg/dL (9.8-20.1); Bilirubin, Total 0.4 mg/dL (0.2-1.2); Calc. Creatinine Clearance 0 mL/min (70-130); Calcium 9.1 mg/dL (7.8-10.44); Carbon Dioxide 23 mmol/L (23-31); Chloride 99 mmol/L (98-107); Estimated GFR-MDRD 59; Globulin 3.4 g/dL (2.4-3.5); Glucose 128 mg/dL (83-110); Potassium 3.5 mmol/L (3.5-5.1); Protein, Total 7.5 g/dL (6.0-8.3); Sodium 135 mmol/L (136-145)
--- NOTE | 2019-12-26 18:16 | CT ---
CT Chest WO Con History: Pain Comparison: Reference is made to chest radiograph same day. CT chest 2018 Findings: Moderate centrilobular emphysema. There is no consolidation within the anterior segment lef t upper lobe part solid nodule right upper lobe measures up to 13 mm. There is present scar in the lung bases and atelectatic change. No pneumothorax. No significant effusion. No significant adenopathy. Moderate atherosclerotic plaque of the aorta. Nonobstructing 4 mm calculus interpolar region left kidney. 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 No thoracic spine compression d eformity. No acute displaced rib fracture. Impression: 1. New from [address] August 2019 consolidation type process in the left upper lob e with patchy opacity in the right upper lobe and left lower lobe may reflect multifocal pneumonia. Follow-up CT of the chest in 3 months is recommended to evaluate for resolution as these opacities ar e not radiographically apparent. Malignancy is felt less likely. 2. No pneumothorax. 3. No displaced rib fracture. 4. Moderate centrilobular emphysema.
[2019-12-26] MEDS ORDERED: Calcium Carbonate 500 MG ChewTAB PO PRN (18:31)
[2019-12-26] MEDS ORDERED: Senokot S 8.6-50 MG TAB PO PRN (18:31)
[2019-12-26] MEDS ORDERED: Ondansetron PF 4 MG/2 ML Vial IVP PRN (18:31)
[2019-12-26] MEDS ORDERED: Acetaminophen 325 MG TAB PO PRN (18:31)
[2019-12-26] MEDS ORDERED: Bisacodyl 10 MG SUPP PR PRN (18:31)
[2019-12-26] MEDS ORDERED: Cefepime 2 GM VIAL ONE (18:42)
--- NOTE | 2019-12-26 21:14 | HP ---
REASON FOR ADMISSION: Multifocal pneumonia, possible COVID, moderate dehydration. HISTORY OF PRESENTING ILLNESS: The patient gives history of being very lethargic from last 2 days. She also has cough with expectoration of clear sputum. She has loss of appetite, although she is eating to some extent. She has been very lethargic and sleepy in the afternoons, which is unusual for her. She states her voice is hoarse from the time she had a C-spine surgery on 11/19 with anterior approach by Dr. Dobbs. She also does mention that she has history of asthma and allergy issues as well. The patient did not have any exposure to anyone having coronavirus infection or flu-like illness. She has a caregiver who stays at night to take care of her and Home Health comes 3 times a week for her . Other than these folks, the patient has not had any exposure to outside people. She states she has been recovering well after her C-spine surgery and was eating and ambulating in the house. No complaints of chest pain or palpitation. PAST MEDICAL AND SURGICAL HISTORY: 1. History of asthma. 2. Hypothyroidism. 3. Dyslipidemia. 4. Appendectomy. 5. C2 through C6 surgery done on 11/19 of this year by Dr. Dobbs. 6. Peripheral vascular disease. 7. Hypertension. CURRENT MEDICATIONS: The patient takes: 1. Losartan 25 mg daily. 2. Multivitamin one tablet daily. 3. Zocor 20 mg p.o. nightly. 4. Symbicort inhaler two puffs twice daily. 5. Hydrochlorothiazide 25 mg daily. 6. Fluticasone nasal spray daily. 7. Fatemeh 180 mg daily. 8. Estradiol 0.5 mg daily. 9. Combivent inhaler two puffs twice daily p.r.n. ALLERGIES: TO CLINDAMYCIN AND TIOTROPIUM. PERSONAL HISTORY: Does not abuse alcohol or drugs. No history of smoking. She lives with her . FAMILY HISTORY: Mother at the age of 87 from natural causes. Father at the age of 46, he apparently bled to after having some rheumatic disease, which she does not recall the exact diagnosis. CODE STATUS: Full. Power of workers compensation defense attorney is her . REVIEW OF SYSTEMS: CONSTITUTIONAL: Negative for weight loss or gain, ability to conduct usual activities. SKIN: Negative for rash, itching. EYES: Negative for double vision, pain. ENT/MOUTH: Negative for nose bleeding, neck stiffness, pain, tenderness. CARDIOVASCULAR: Negative for palpitations, dyspnea on exertion, orthopnea. RESPIRATORY: Negative for shortness of breath, wheezing, cough, hemoptysis, fever or night sweats. GASTROINTESTINAL: Negative for poor appetite, abdominal pain, heartburn, nausea, vomiting, constipation, or diarrhea. GENITOURINARY: Negative for urgency, frequency, dysuria, nocturia. MUSCULOSKELETAL: Negative for pain, swelling. NEUROLOGIC/PSYCHIATRIC: Negative for anxiety, depression. ALLERGY/IMMUNOLOGIC: Negative for skin rash, bleeding tendency. PHYSICAL EXAMINATION: GENERAL: The patient is an 79-year-old female who is currently not in any acute distress. VITAL SIGNS: Blood pressure 150/60, pulse 94 per minute, respiratory rate 22 per minute, temperature 99.5 degrees Fahrenheit, and saturating 95% on room air. NECK: Supple. No elevated JVD. EYES: Extraocular muscles intact. Pupils reacting to light. ORAL CAVITY: Mucous membranes are dry. No exudates or congestion. CARDIOVASCULAR SYSTEM: S1 and S2 heard. Regular rhythm. RESPIRATORY SYSTEM: Air entry 1+ bilateral. Scattered rhonchi plus mild wheezes plus bilateral. ABDOMEN: Soft. Bowel sounds heard. No tenderness, rigidity, or guarding. EXTREMITIES: No peripheral edema or calf tenderness. VASCULAR SYSTEM: Peripheral pulses 1+ bilateral. No ischemic ulcerations or gangrene. CENTRAL NERVOUS SYSTEM: No gross focal deficits noted. PSYCHIATRIC SYSTEM: The patient's mood is euthymic. No hallucinations or delusions. LABORATORY DATA: CT chest done shows findings suggestive of multifocal pneumonia. Influenza A and B antigens are negative. UA is negative for any infection. LDH is 263. CRP is 22.1. Troponin-I is negative. Albumin is 4.1. Procalcitonin is normal. Liver enzymes are within normal limits. Serum glucose 128. Lactic acid 0.9. Electrolytes are stable. BUN 13 and creatinine 0.9. White count of 19, hemoglobin and hematocrit 11 and 35, platelet count 368 with 56% neutrophils, 26% bands, and 9% lymphocytes. EKG done shows normal sinus rhythm at 91 beats per minute. CLINICAL IMPRESSION AND PLAN: The patient will be admitted to medical floor for multifocal pneumonia, likely COVID-19 infection with sepsis. She also has moderate dehydration clinically. We will place her on Zithromax 500 mg IV daily along with Combivent inhaler four times daily. She will be gently hydrated with normal saline at 50 mL per hour. We will also consult Dr. Yadav who is on-call for Pulmonology and Critical Care. We will continue home dose of Synthroid, Symbicort inhaler, multivitamin, Zocor, and estradiol as before. Airborne and droplet precautions will be obtained. Respiratory virus pathogen PCR and coronavirus PCR swab been obtained in the ER. We will continue to closely monitor her on medical floor. Job ID: [id number]
[2019-12-26 22:34] VITALS: BMI 30.4
[2019-12-26] MEDS: Simvastatin 20 MG TAB PO SCH (22:51)
[2019-12-26] MEDS: Famotidine 20 MG TAB PO SCH (22:51)
[2019-12-26] MEDS: Sodium Chloride 0.9% 1,000 ML IV SCH (22:51)
[2019-12-26] MEDS: Azithromycin 500 MG in Sodium Chloride 0.9% 250 ML 250 ML IVPB SCH (22:53)
[2019-12-26] MEDS: Vancomycin HCl 1.25 GM in Sodium Chloride 0.9% 250 ML 250 ML IVPB SCH (23:12)
[2019-12-27] MEDS ORDERED: HYDROcodone/Acetaminophen 5/325 mg Tablet PO PRN ×2 (02:00)
[2019-12-27] MEDS: Guaifenesin DM 100-10/5 ML UDCUP PO PRN ×2 (02:16→13:03)
[2019-12-27] MEDS: Cefepime 1 GM in Sodium Chloride 0.9% 100 ML IVPB SCH ×2 (05:29→18:08)
[2019-12-27] MEDS: Levothyroxine Sodium 25 MCG TAB PO SCH (05:32)
[2019-12-27 05:48] LABS: Hemoglobin 10.7 g/dL (12.0-16.0); Mean Corpuscular HGB CONC 33.1 g/dL (32.0-36.0); Mean Corpuscular Volume 90.7 fL (78.0-98.0); Mean Platelet Volume 6.5 fL (7.4-10.4); Platelet Count 311 thou/uL (130-400); RBC Distribution Width 11.4 % (11.5-14.5); Red Blood Cell (RBC) Count 3.55 mill/uL (4.20-5.40); White Blood Cell (WBC) Count 16.9 thou/uL (4.8-10.8)
[2019-12-27 05:56] LABS: ALT (SGPT) 20 U/L (8-55); AST (SGOT) 20 U/L (5-34); Albumin 3.5 g/dL (3.4-4.8); Alkaline Phosphatase 85 U/L (40-110); Anion Gap 13 mmol/L (10-20); BUN (Urea Nitrogen) 11 mg/dL (9.8-20.1); Bilirubin, Total 0.5 mg/dL (0.2-1.2); Calc. Creatinine Clearance 79 mL/min (70-130); Calcium 8.4 mg/dL (7.8-10.44); Carbon Dioxide 26 mmol/L (23-31); Chloride 103 mmol/L (98-107); Estimated GFR-MDRD 77; Glucose 122 mg/dL (83-110); Potassium 3.5 mmol/L (3.5-5.1); Protein, Total 6.5 g/dL (6.0-8.3); Sodium 138 mmol/L (136-145)
[2019-12-27 06:37] LABS: Band 15 % (5-11); Lymphocytes 7 % (21-51); MDiff Complete? YES; Monocytes 5 % (0-10); Neutrophil 73 % (42-75)
[2019-12-27] MEDS: Mometasone 100 MCG/Formoterol 5 MCG 120 PUFF INHALER INH SCH ×2 (06:58→19:44)
[2019-12-27] MEDS: Albuterol 200 PUFF (6.7GM INHALER) INH SCH ×4 (08:55→19:42)
[2019-12-27] MEDS ORDERED: PROVENTIL INHALER 6.7 G (200 INHALATIONS) INH SCH (09:00)
[2019-12-27] MEDS: Famotidine 20 MG TAB PO SCH ×2 (10:34→20:43)
[2019-12-27] MEDS: Multivit, Therapeutic 1 TAB PO SCH (10:34)
[2019-12-27] MEDS: Enoxaparin Sodium 40 MG/0.4 ML SYRINGE SC SCH (10:34)
[2019-12-27] MEDS: Loratadine 10 MG TAB PO SCH (10:34)
--- NOTE | 2019-12-27 10:45 | PDOC.HOSPP ---
- Subjective Encounter Date: 12/27/19 Encounter Time: 09:30 Subjective: is sitting on bed, no sob or wheezing feels better ate her breakfast this am - Objective Vital Signs & Weight: Vital Signs (12 hours) Temp Pulse Resp BP Pulse Ox 12/27/19 05:00 98.3 F 93 18 115/70 94 L 12/27/19 00:30 98.9 F 95 20 165/67 H 95 Weight Weight 183 lb I&O: 12/26/19 12/27/19 12/28/19 06:59 06:59 06:59 Intake Total 1400 Balance 1400 Result Diagrams: 12/27/19 05:17 12/27/19 05:17 Hospitalist ROS - Medication Medications: Active Medications Generic Name Dose Route Start Last Admin Trade Name Freq PRN Reason Stop Dose Admin Hydrocodone Bitart/Acetaminophen 2 tab 12/27/19 02:00 12/27/19 02:16 [place] 5/325 PO 2 tab Q4H PRN Administration Severe Pain (7-10) Albuterol Sulfate 2 puff 12/27/19 09:00 12/27/19 08:55 Proventil Hfa INH 2 puff QID REINIER Administration Famotidine 20 mg 12/26/19 21:00 12/26/19 22:51 Pepcid PO 20 mg BID REINIER Administration Guaifenesin/Dextromethorphan 15 ml 12/26/19 18:31 12/27/19 02:16 Robitussin Dm PO 15 ml Q4H PRN Administration Cough Azithromycin 500 mg/ Sodium 250 mls @ 250 mls/hr 12/26/19 20:00 12/26/19 22: 53 Chloride IVPB 250 mls Q24HR REINIER Administration Sodium Chloride 1,000 mls @ 50 mls/hr 12/26/19 18:31 12/26/19 22:51 Normal Saline 0.9% IV 1,000 mls .Q20H REINIER Administration Cefepime HCl 1 gm/ Sodium 100 mls @ 200 mls/hr 12/27/19 06:00 12/27/19 05:29 Chloride IVPB 100 mls 0600,1800 REINIER Administration Vancomycin HCl 1.25 gm/ Sodium 250 mls @ 166.67 mls/hr 12/26/19 23:00 23:12 Chloride IVPB 250 mls 2300 REINIER Administration Levothyroxine Sodium 25 mcg 12/27/19 06:00 12/27/19 05:32 Synthroid PO 25 mcg 0600 REINIER Administration Mometasone Furoate/Formoterol Fumar 2 puff 12/27/19 06:30 12/27/19 06:58 Dulera 100 Mcg/5 Mcg Inhaler INH 2 puff BID-RT REINIER Administration Simvastatin 20 mg 12/26/19 21:00 12/26/19 22:51 Zocor PO 20 mg HS REINIER Administration - Exam General Appearance: awake alert Eye: PERRL, anicteric sclera ENT: no oropharyngeal lesions, moist mucosa Neck: supple, no JVD Heart: RRR, no murmur Respiratory: no wheezes, no rales, rhonchi Gastrointestinal: soft, non-tender, non-distended, normal bowel sounds Extremities: no cyanosis, no edema Neurological: cranial nerve grossly intact, no focal deficits Psychiatric: normal affect, A&O x 3 Hosp A/P (1) PNA (pneumonia) Code(s): J18.9 - PNEUMONIA, UNSPECIFIED ORGANISM Status: Acute Qualifiers: Pneumonia type: due to unspecified organism Laterality: bilateral (2) Obesity (BMI 30.0-34.9) Code(s): E66.9 - OBESITY, UNSPECIFIED Status: Chronic (3) HTN (hypertension) Code(s): I10 - ESSENTIAL (PRIMARY) HYPERTENSION Status: Chronic Qualifiers: Hypertension type: essential hypertension Qualified Code(s): I10 - Essential (primary) hypertension (4) Hypothyroidism Code(s): E03.9 - HYPOTHYROIDISM, UNSPECIFIED Status: Chronic Qualifiers: Hypothyroidism type: unspecified Qualified Code(s): E03.9 - Hypothyroidism , unspecified (5) H/O extrinsic asthma Code(s): Z87.09 - PERSONAL HISTORY OF OTHER DISEASES OF THE RESPIRATORY SYSTEM Status: Chronic (6) Dyslipidemia Code(s): E78.5 - HYPERLIPIDEMIA, UNSPECIFIED Status: Chronic (7) Sepsis Code(s): A41.9 - SEPSIS, UNSPECIFIED ORGANISM Status: Acute Qualifiers: Sepsis type: sepsis due to unspecified organism Sepsis acute organ dysfunction status: without acute organ dysfunction Qualified Code(s): A41.9 - Sepsis, unspecified organism - Plan is on zithromax, ceftriaxone and vanc, prelim blood cs are -ve, influenza screen is -ve, await covid 19 results likely might have aspiration due to recent c.spine surgery with hoarseness wbc is trending down with bands alb inhaler qid hemostable
[2019-12-27] MEDS: Fluticasone Propionate Nasal Spray 16 gm Bottle NASAL SCH (12:08)
[2019-12-27] MEDS: Estradiol 1 MG TAB PO SCH (12:08)
[2019-12-27] MEDS: Sodium Chloride 0.9% 1,000 ML IV SCH (13:03)
[2019-12-27] MEDS: Simvastatin 20 MG TAB PO SCH (20:43)
[2019-12-27] MEDS: Azithromycin 500 MG in Sodium Chloride 0.9% 250 ML 250 ML IVPB SCH (20:43)
[2019-12-28] MEDS: Vancomycin HCl 1.25 GM in Sodium Chloride 0.9% 250 ML 250 ML IVPB SCH (00:27)
[2019-12-28] MEDS: Cefepime 1 GM in Sodium Chloride 0.9% 100 ML IVPB SCH (05:49)
[2019-12-28] MEDS: Levothyroxine Sodium 25 MCG TAB PO SCH (05:49)
[2019-12-28 06:04] LABS: #Eosinphils 0.1 thou/uL (0.0-0.7); #Lymphocytes 1.6 thou/uL (1.20-3.40); #Monocytes 0.9 thou/uL (0.11-0.59); #Neutrophils 7.7 thou/uL (1.40-6.50); %Basophils 0.5 % (0.0-1.0); %Eosinophils 1.1 % (0.0-10.0); %Lymphocytes 15.1 % (21.0-51.0); %Monocytes 8.9 % (0.0-10.0); %Neutrophils 74.4 % (42.0-75.0); Hemoglobin 10.4 g/dL (12.0-16.0); Mean Corpuscular HGB CONC 33.1 g/dL (32.0-36.0); Mean Corpuscular Hemoglobin 29.8 pg (27.0-31.0); Mean Corpuscular Volume 90.3 fL (78.0-98.0); Mean Platelet Volume 6.9 fL (7.4-10.4); Platelet Count 326 thou/uL (130-400); RBC Distribution Width 11.4 % (11.5-14.5); Red Blood Cell (RBC) Count 3.49 mill/uL (4.20-5.40); White Blood Cell (WBC) Count 10.4 thou/uL (4.8-10.8)
[2019-12-28] MEDS: Mometasone 100 MCG/Formoterol 5 MCG 120 PUFF INHALER INH SCH ×2 (07:15→23:47)
--- NOTE | 2019-12-28 07:36 | CON ---
DATE OF CONSULTATION: 12/27/2019 SERVICE: Pulmonary Medicine. REASON FOR CONSULTATION: Possible COVID. HISTORY OF PRESENT ILLNESS: The patient is an 79-year-old white female with past medical history significant for essentially nothing. She has no COVID exposures. That being said, she had a neck surgery about a month ago. She recovered very nicely from that. That being said, over the last week, she has noticed increasing congestion in her nose and the back of her throat. She started coughing up a little bit yellow phlegm. Either way, she was doing just fine without any difficulties , thinking this was just associated with allergies. She then had an abrupt onset of right anterior chest discomfort, which was extraordinarily sharp and constant. There was no respiratory phasic component. She then started coughing up significant amounts of purulent material, and she presented to the emergency department immediately because of the chest discomfort. Over a period of an hour and a half, it slowly abated. Since then, she has been back to her usual state of health. She denies having any fevers, chills, nausea, vomiting, or diarrhea. Otherwise, she is in her usual state of health. She is currently being isolated for possible COVID. Test has been sent off. Yesterday, I encouraged broad-spectrum antibiotics because of very elevated white blood cell count with bandemia. She was able to liberate sputum overnight. We are sending down a sample for analysis. Otherwise, there has been no interval change to her condition. If anything, she feels back to baseline. She is on room air and suggesting that at this point, she feels good enough to get out of here. Of note, she had the exact same thing happened to her roughly 15 years ago. At that point, she had bilateral pneumonia. It was treated with a course of antibiotics and she recovered fully. PAST MEDICAL HISTORY: 1. Hypothyroidism. 2. Hypertension. 3. Dyslipidemia. 4. Asthma. 5. Peripheral vascular disease. PAST SURGICAL HISTORY: 1. Appendectomy. 2. C2-C6 surgery, recent. ALLERGIES: CLINDAMYCIN, TIOTROPIUM. MEDICATIONS: List of her inpatient medications was reviewed. No specific updates were made at this time. FAMILY HISTORY: Noncontributory. SOCIAL HISTORY: Negative for alcohol, tobacco, or illicit drug use currently. She lives in [place] and up until recently because she is in the hospital, she has been "hunkering down." REVIEW OF SYSTEMS: General, head, ears, eyes, nose, throat, cardiovascular, respiratory, GI, , musculoskeletal, neurologic, and skin are negative except as mentioned in the HPI. PHYSICAL EXAMINATION: VITAL SIGNS: Afebrile, currently with a T-max of 99.4, pulse 92, blood pressure 145/67, respirations 18, saturation 95%, currently on room air. GENERAL: The patient is awake and alert, in no apparent distress. LUNGS: Decent air entry. Rhonchi are present. There is a slightly prolonged expiratory phase, but no wheezing. HEART: Normal rate and regular. ABDOMEN: Soft, nontender, nondistended. Bowel sounds are positive. MUSCULOSKELETAL: No cyanosis or clubbing. There is no pitting in the bilateral lower extremities. NEUROLOGIC: Grossly nonfocal. LABORATORY DATA: WBC is downtrending to 16.9. Band count has improved from 26 % to 15%. D-dimer is 0.76. Basic metabolic profile and liver function studies are unremarkable. CRP is elevated, though, procalcitonin is normal. Troponin 0.024. LDH is marginally elevated. Lactate is unremarkable. Urinalysis is negative. Blood cultures x2, influenza A and B are unremarkable. Urine culture is negative. DIAGNOSTIC STUDIES: 1. Chest x-ray demonstrates multifocal inflammatory changes. 2. CT of the chest demonstrates multifocal areas of interstitial and consolidating changes. There is some emphysema also noted. Cardiac silhouette is slender. Left atrium is small. ASSESSMENT: 1. Community-acquired pneumonia, secondary to suspected bacterial organism. 2. Chronic obstructive pulmonary disease with acute exacerbation. 3. Sepsis without end-organ damage. 4. Rule out COVID. DISCUSSION AND PLAN: I would be surprised if the test result was positive for COVID. The patient is having significant purulent sputum production, and had an absolutely abrupt onset and symptoms more consistent with a community-acquired pneumonia, bacterial origin. We will send the sputum that she liberated for Gram stain and culture. Hopefully, this will give us an idea of what we are dealing with. We can continue empiric antibiotics for the time being. If the COVID is ruled out, she can be transitioned over to azithromycin and Omnicef to complete a 5-day course of azithromycin and a 7-day course of beta lactam. We probably found this thing very early, and a procalcitonin will be repeated tomorrow morning. I would not be surprised if it becomes positive at that point. Either way, if she is doing well tomorrow, COVID or not, she can be discharged from the hospital. She is currently on room air, and has no specific complaints. If her COVID is negative , a 5-day course of prednisone would be reasonable. She requires a repeat chest x- ray in 4 to 6 weeks in the outpatient setting to make certain her infiltrates resolved. Under the event that she goes home and becomes worse, I have counseled her to return to the emergency department. I would probably hold onto her until we know the COVID results as she has an elderly at home. At this point, she has no further requirements for Pulmonary Critical Care opinion, and I will sign off. Please call with additional questions or concerns through time. 70 minutes have been devoted to this patient in various activities. I personally reviewed all imaging studies and laboratory data noted within this document. For fifty percent of this time, I was interacting with the patient at the bedside or coordinating care with the care team. For the remainder of the time I was immediately available to the patient in the hospital unit. Job ID: [id number] MTDD
--- NOTE | 2019-12-28 08:18 | PRG ---
DATE OF SERVICE: 12/28/2019 SERVICE: Pulmonary Medicine. INTERVAL HISTORY: The patient is doing really well from Respiratory standpoint. Breathing comfortably. No fevers or chills overnight. She continues to cough up a little bit of green phlegm, but overall, is feeling much better. Her appetite is improved. She is looking forward to getting out of here at some point today. PHYSICAL EXAMINATION: VITAL SIGNS: Afebrile, pulse 93, blood pressure 155/76, respirations 20, and saturation 95% on room air. GENERAL: The patient is awake and alert, in no apparent distress. LUNGS: Wonderful air entry with no prolonged expiratory phase or wheezing present. HEART: Normal rate and regular. ABDOMEN: Soft, nontender, nondistended. Bowel sounds are positive. MUSCULOSKELETAL: No cyanosis or clubbing. No pitting in the bilateral lower extremities. NEUROLOGIC: Grossly nonfocal. LABORATORY DATA: Hemoglobin 10.4, platelets 326,000. Neutrophils are 75%. I can only imagine the bands have resolved. Lymphocytes are rebounding as are the monocytes. Basic metabolic profile and liver function studies are unremarkable. Procalcitonin remains negative, though this CRP is beautifully downtrending. Urinalysis is negative. Coded testing is negative. There is a gram variable arianna in 1 of 2 blood cultures, likely representing a contaminant. Influenza A and B are negative. Urine culture is negative. Respiratory culture has many white blood cells, very few epithelial cells suggesting this is a good sample. Additionally, moderate amount of gram-positive cocci are present in pairs and clusters. ASSESSMENT: 1. Community-acquired pneumonia. 2. Chronic obstructive pulmonary disease with acute exacerbation. 3. Sepsis without end-organ damage. 4. Negative coronavirus disease testing. DISCUSSION AND PLAN: From my perspective, this patient is stable for transition out of the hospital. She can complete a 5-day course of azithromycin and a 7-day course of Omnicef directed at lung-related issues. She can resume her home inhalers on discharge from the hospital, and at this point, since her shortness of breath has resolved, I see no need to give her a brief course of steroids. She will require repeat chest x-ray in 4 to 6 weeks in the outpatient setting to verify the infiltrates have resolved. At this point, she has no further requirements for inpatient Pulmonary or Critical Care opinion, and I will sign off. Please call with additional questions or concerns through time. Job ID: [id number] MTDD
[2019-12-28] MEDS: Estradiol 1 MG TAB PO SCH (09:26)
[2019-12-28] MEDS: Loratadine 10 MG TAB PO SCH (09:26)
[2019-12-28] MEDS: Famotidine 20 MG TAB PO SCH ×2 (09:26→20:43)
[2019-12-28] MEDS: Cefdinir 300 MG CAP PO SCH ×2 (09:26→20:43)
[2019-12-28] MEDS: Multivit, Therapeutic 1 TAB PO SCH (09:26)
[2019-12-28] MEDS: Fluticasone Propionate Nasal Spray 16 gm Bottle NASAL SCH (09:31)
[2019-12-28] MEDS: Enoxaparin Sodium 40 MG/0.4 ML SYRINGE SC SCH (09:31)
[2019-12-28] MEDS: Albuterol 200 PUFF (6.7GM INHALER) INH SCH ×4 (09:35→23:47)
--- NOTE | 2019-12-28 11:17 | PDOC.HOSPP ---
- Subjective Encounter Date: 12/28/19 Encounter Time: 08:45 Subjective: cough is better, is able to bring up sputum now gets sob on exertion in the room, has not ambulated outside due to covid restrictions - Objective Vital Signs & Weight: Vital Signs (12 hours) Temp Pulse Resp BP Pulse Ox 12/28/19 08:00 98.0 F 91 20 134/63 95 12/28/19 04:50 95 Weight Weight 183 lb I&O: 12/27/19 12/28/19 12/29/19 06:59 06:59 06:59 Intake Total 1400 Balance 1400 Result Diagrams: 12/28/19 05:20 12/27/19 05:17 Hospitalist ROS - Medication Medications: Active Medications Generic Name Dose Route Start Last Admin Trade Name Freq PRN Reason Stop Dose Admin Acetaminophen 650 mg 12/26/19 18:31 12/27/19 13:03 Tylenol PO 650 mg Q4H PRN Administration Headache/Fever/Mild Pain (1-3) Hydrocodone Bitart/Acetaminophen 2 tab 12/27/19 02:00 12/27/19 02:16 [place] 5/325 PO 2 tab Q4H PRN Administration Severe Pain (7-10) Albuterol Sulfate 2 puff 12/27/19 09:00 12/28/19 09:35 Proventil Hfa INH 2 puff QID REINIER Administration Cefdinir 300 mg 12/28/19 09:00 12/28/19 09:26 Omnicef PO 300 mg BID REINIER Administration Enoxaparin Sodium 40 mg 12/27/19 09:00 12/28/19 09:31 Lovenox SC 40 mg 0900 REINIER Administration Estradiol 1 mg 12/27/19 09:00 12/28/19 09:26 Estrace PO 1 mg DAILY REINIER Administration Famotidine 20 mg 12/26/19 21:00 12/28/19 09:26 Pepcid PO 20 mg BID REINIER Administration Fluticasone Propionate 0 gm 12/27/19 09:00 12/28/19 09:31 Flonase Nasal [place] NASAL Not Given DAILY REINIER Guaifenesin/Dextromethorphan 15 ml 12/26/19 18:31 12/27/19 13:03 Robitussin Dm PO 15 ml Q4H PRN Administration Cough Levothyroxine Sodium 25 mcg 12/27/19 06:00 12/28/19 05:49 Synthroid PO 25 mcg 0600 REINIER Administration Loratadine 10 mg 12/27/19 09:00 12/28/19 09:26 Claritin PO 10 mg DAILY REINIER Administration Mometasone Furoate/Formoterol Fumar 2 puff 12/27/19 06:30 12/28/19 07:15 Dulera 100 Mcg/5 Mcg Inhaler INH 2 puff BID-RT REINIER Administration Multivitamins 1 tab 12/27/19 09:00 12/28/19 09:26 Theragran PO 1 tab DAILY REINIER Administration Simvastatin 20 mg 12/26/19 21:00 12/27/19 20:43 Zocor PO 20 mg HS REINIER Administration Sodium Chloride 10 ml 12/28/19 09:00 12/28/19 09:32 Flush - Normal Saline IVF 10 ml Q12HR REINIER Administration - Exam General Appearance: awake alert Eye: PERRL, anicteric sclera ENT: no oropharyngeal lesions, moist mucosa Neck: supple, no JVD Heart: RRR, no murmur Respiratory: no wheezes, no rales, rhonchi Gastrointestinal: soft, non-tender, non-distended, normal bowel sounds Extremities: no cyanosis, no edema Neurological: cranial nerve grossly intact, no focal deficits Psychiatric: normal affect, A&O x 3 Hosp A/P (1) PNA (pneumonia) Code(s): J18.9 - PNEUMONIA, UNSPECIFIED ORGANISM Status: Acute Qualifiers: Pneumonia type: due to unspecified organism Laterality: bilateral (2) Obesity (BMI 30.0-34.9) Code(s): E66.9 - OBESITY, UNSPECIFIED Status: Chronic (3) HTN (hypertension) Code(s): I10 - ESSENTIAL (PRIMARY) HYPERTENSION Status: Chronic Qualifiers: Hypertension type: essential hypertension Qualified Code(s): I10 - Essential (primary) hypertension (4) Hypothyroidism Code(s): E03.9 - HYPOTHYROIDISM, UNSPECIFIED Status: Chronic Qualifiers: Hypothyroidism type: unspecified Qualified Code(s): E03.9 - Hypothyroidism , unspecified (5) H/O extrinsic asthma Code(s): Z87.09 - PERSONAL HISTORY OF OTHER DISEASES OF THE RESPIRATORY SYSTEM Status: Chronic (6) Dyslipidemia Code(s): E78.5 - HYPERLIPIDEMIA, UNSPECIFIED Status: Chronic (7) Sepsis Code(s): A41.9 - SEPSIS, UNSPECIFIED ORGANISM Status: Resolved Qualifiers: Sepsis type: sepsis due to unspecified organism Sepsis acute organ dysfunction status: without acute organ dysfunction Qualified Code(s): A41.9 - Sepsis, unspecified organism - Plan is on zithromax and omnicef, influenza screen is -ve, covid 19 is -ve. likely might have aspiration due to recent c.spine surgery with hoarseness alb inhaler qid hemostable to ambulate in hallway with PT as tolerated
[2019-12-28] MEDS: Simvastatin 20 MG TAB PO SCH (20:43)
[2019-12-29] MEDS: Levothyroxine Sodium 25 MCG TAB PO SCH (05:39)
[2019-12-29 05:42] LABS: #Basophils 0.1 thou/uL (0.0-0.2); #Eosinphils 0.2 thou/uL (0.0-0.7); #Lymphocytes 2.1 thou/uL (1.20-3.40); #Monocytes 0.9 thou/uL (0.11-0.59); %Basophils 0.8 % (0.0-1.0); %Eosinophils 2.1 % (0.0-10.0); %Lymphocytes 22.4 % (21.0-51.0); %Monocytes 9.7 % (0.0-10.0); %Neutrophils 65.1 % (42.0-75.0); Hemoglobin 10.2 g/dL (12.0-16.0); Mean Corpuscular HGB CONC 34.1 g/dL (32.0-36.0); Mean Corpuscular Hemoglobin 30.5 pg (27.0-31.0); Mean Corpuscular Volume 89.3 fL (78.0-98.0); Mean Platelet Volume 6.7 fL (7.4-10.4); Platelet Count 340 thou/uL (130-400); RBC Distribution Width 11.2 % (11.5-14.5); Red Blood Cell (RBC) Count 3.34 mill/uL (4.20-5.40); White Blood Cell (WBC) Count 9.2 thou/uL (4.8-10.8)
[2019-12-29] MEDS: Famotidine 20 MG TAB PO SCH (07:56)
[2019-12-29] MEDS: Loratadine 10 MG TAB PO SCH (07:56)
[2019-12-29] MEDS: Multivit, Therapeutic 1 TAB PO SCH (07:56)
[2019-12-29] MEDS: Estradiol 1 MG TAB PO SCH (07:56)
[2019-12-29] MEDS: Cefdinir 300 MG CAP PO SCH (07:56)
[2019-12-29] MEDS: Fluticasone Propionate Nasal Spray 16 gm Bottle NASAL SCH (07:57)
[2019-12-29] MEDS: Mometasone 100 MCG/Formoterol 5 MCG 120 PUFF INHALER INH SCH (07:58)
[2019-12-29] MEDS: Albuterol 200 PUFF (6.7GM INHALER) INH SCH (08:00)
[2019-12-29] MEDS: Enoxaparin Sodium 40 MG/0.4 ML SYRINGE SC SCH (08:01)
[2019-12-29 08:33] VITALS: BP 162/72; TEMP 98.4
[2019-12-29] MEDS ORDERED: Azithromycin 250 MG TAB PO SCH (09:00)
[2019-12-29] MEDS ORDERED: Albuterol 200 PUFF (6.7GM INHALER) INH SCH (11:00)
--- NOTE | 2019-12-29 12:53 | DIS ---
DATE OF ADMISSION: 12/26/2019 DATE OF DISCHARGE: 12/29/2019 DISCHARGE DISPOSITION: Home. PRIMARY DISCHARGE DIAGNOSES: Pneumonia bilateral, likely aspiration pneumonia; recent history of C-spine surgery with anterior approach; hypertension; hypothyroidism; obesity; dyslipidemia; history of extrinsic asthma with no exacerbation; sepsis due to pneumonia, resolved. PROCEDURES DONE DURING HOSPITALIZATION: CT chest, bilateral upper lobe pneumonia and left lower lobe with multifocal infiltrates. Influenza A and B antigens were negative. Respiratory virus panel pathogen was negative. COVID-19 PCR not detected. BUN 11, creatinine 0.7. CRP 22. LDH was 263. Procalcitonin 0.05. Had a white count of 19 on the day of admission with discharge numbers of 9, H and H 10 and 29, platelet count 340, had 26% bands on admission. DISCHARGE MEDICATIONS: 1. Zithromax 250 mg p.o. daily for another 3 days. 2. Omnicef 300 mg p.o. twice daily for 6 days. 3. Albuterol inhaler four times daily p.r.n. 4. Symbicort inhaler 2 puffs twice daily. 5. Zocor 20 mg p.o. at bedtime. 6. Multivitamin 1 tablet once daily. 7. Losartan 25 mg daily. 8. Levothyroxine 25 mcg p.o. daily. 9. Fatemeh 180 mg p.o. daily. 10. Estradiol 0.5 mg p.o. daily. ALLERGIES: CLINDAMYCIN AND TIOTROPIUM. INPATIENT CONSULT: Dr. Yadav for Pulmonology. DISCHARGE PLAN: The patient to follow up with Dr. Mirian Angel, nurse practitioner in 1 week, Dr. Fito Dobbs, her neurosurgeon tomorrow to keep her prior appointment as before. BRIEF COURSE DURING HOSPITALIZATION: The patient initially came to ER with complaints of shortness of breath, cough, and severe lethargy. She was found to be septic with bilateral multifocal infiltrate. She has had anterior C-spine surgery done on 11/19/2019. The patient likely has had aspiration pneumonia, so initially she was suspected to have COVID, which came back negative. She was on broad-spectrum antibiotics and has been transitioned to Zithromax and Omnicef as prescribed. Dr. Yadav, cant hooker, has evaluated the patient during her stay here. She is cleared for discharge. Please note, I have seen and examined the patient on the day of discharge. Job ID: [id number]
--- NOTE | 2020-01-05 13:34 | EKG ---
Test Reason : Blood Pressure : / mmHG Vent. Rate : 091 BPM Atrial Rate : 091 BPM P-R Int : 184 ms QRS Dur : 086 ms QT Int : 348 ms P-R-T Axes : 070 057 073 degrees QTc Int : 428 ms Normal sinus rhythm Nonspecific ST abnormality Abnormal ECG Confirmed by LEONILA BEDOYA MD ([id number]), assistant production editor WILFRIDO MASON ([id number]) on 01/05/2020 1:34:34 PM Referred By: Confirmed By:LEONILA BEDOYA MD
== END 2019-12-29 12:23 | disposition home or self-care (01) | DRG 871 ==
LOC: ERS 15:59 → T4-A 18:32
PROVIDERS: ADMIT Internal Medicine; ATTEND Internal Medicine
DX: A41.9 Sepsis, unspecified organism (principal); J69.0 Pneumonitis due to inhalation of food and vomit; J44.1 Chronic obstructive pulmonary disease with (acute) exacerbation; I10 Essential (primary) hypertension; E03.9 Hypothyroidism, unspecified; E66.9 Obesity, unspecified; E78.5 Hyperlipidemia, unspecified; E86.0 Dehydration; I73.9 Peripheral vascular disease, unspecified; E78.00 Pure hypercholesterolemia, unspecified; Z88.1 Allergy status to other antibiotic agents; Z88.8 Allergy status to other drugs, medicaments and biological substances; Z98.1 Arthrodesis status; Z90.49 Acquired absence of other specified parts of digestive tract; Z90.710 Acquired absence of both cervix and uterus; Z79.51 Long term (current) use of inhaled steroids; Z79.890 Hormone replacement therapy; Z79.899 Other long term (current) drug therapy; Z68.30 Body mass index [BMI] 30.0-30.9, adult
CPT/HCPCS: 36415; 71045; 71250; 80053; 81003; 83605; 83615; 84145; 84484; 85025; 85379; 86140; 87040; 87070; 87086; 87205; 87633; 87804; 93005; 94664; 94760; 96365; 96375; J0456; J0692; J1650; J1956; J3370; J3490; J7050; U0001

== ENCOUNTER 2020-02-04 07:10 | Outpatient (CLI) | payer MEDICARE ==
--- NOTE | 2020-02-04 07:39 | RAD ---
EXAM: Chest PA and lateral: HISTORY: Pulmonary nodules COMPARISON: 10/21/2019 Correlation: Chest CT 12/26/2019 FINDINGS: Heart: Normal cardiac silhouette Aorta: Atherosclerosis Pulmonary vessels: Normal Costophrenic angles: Costophrenic angles are clear. Lungs: No consolidation or masses. Pneumothorax: No pneumothorax Osseous structures: No osseous abnormalities. Evidence of cervical fusion hardware Incidentals: Linear density projects over the upper abdomen, only appreciated on the lateral projecti on. Correlate for artifact versus foreign body. IMPRESSION: 1. No acute cardiopulmonary process. No radiographic correlate for findings noted on recent chest CT. If suspicion persists, consider repeat CT. 2. Atherosclerosis 3. Artifact versus foreign body, best appreciated lateral projection. Correlation clinically CODE T
== END 2020-02-04 07:11 | disposition home or self-care (01) ==
LOC: RAD-FRANK 07:10
PROVIDERS: ATTEND Nurse Practitioner Family
DX: Z09 Encounter for follow-up examination after completed treatment for conditions other than malignant neoplasm (principal); I70.90 Unspecified atherosclerosis; Z87.898 Personal history of other specified conditions; Z87.09 Personal history of other diseases of the respiratory system
CPT/HCPCS: 71046

== ENCOUNTER 2020-03-18 09:56 | Outpatient (CLI) | payer MEDICARE ==
[~2020-03-18 09:56] MED LIST: Iopamidol-370 76% 500 ML 1 ML ONE
--- NOTE | 2020-03-18 14:27 | CT ---
EXAM: CT of the chest with contrast HISTORY: Cough and emphysema. Pulmonary nodules. COMPARISON: 12/23/2017 TECHNIQUE: Multiple contiguous axial images were obtained in a CT the chest with contrast. Coronal an d sagittal reformats were performed. FINDINGS: HEART: Normal in size without focal cardiac abnormality MEDIASTINUM: No hilar or mediastinal lymphadenopathy. LUNGS: No focal infiltrates, nodules, or masses. The previously seen opacities in the lungs have reso lved. Emphysematous changes in the lung apices. PLEURAL SPACE: No pneumothorax or pleural effusion. CHEST WALL SOFT TISSUES: A stable lipoma is seen in the soft tissues of the left back. OSSEOUS STRUCTURES: Degenerative changes in the spine. VISUALIZED SUBDIAPHRAGMATIC STRUCTURES: Unremarkable IMPRESSION: No evidence of acute intrathoracic abnormality.
== END 2020-03-18 09:57 | disposition home or self-care (01) ==
LOC: BICCT 09:56
PROVIDERS: ATTEND Nurse Practitioner Family
DX: J43.9 Emphysema, unspecified (principal); R05 Cough; R53.83 Other fatigue; Z87.09 Personal history of other diseases of the respiratory system
CPT/HCPCS: 71260; Q9967

== ENCOUNTER 2020-07-18 00:44 | Observation (INO) | payer MEDICARE, OTHER ==
[2020-07-18] MEDS ORDERED: cloNIDine 0.1 MG TAB ONE (01:06)
[2020-07-18 01:16] LABS: #Basophils 0.1 thou/uL (0.0-0.2); #Eosinphils 0.3 thou/uL (0.0-0.7); #Lymphocytes 2.4 thou/uL (1.20-3.40); #Monocytes 0.8 thou/uL (0.11-0.59); #Neutrophils 4.3 thou/uL (1.40-6.50); %Basophils 1.7 % (0.0-1.0); %Eosinophils 3.4 % (0.0-10.0); %Lymphocytes 29.9 % (21.0-51.0); %Monocytes 9.9 % (0.0-10.0); %Neutrophils 55.1 % (42.0-75.0); Hemoglobin 12.1 g/dL (12.0-16.0); Mean Corpuscular HGB CONC 34.1 g/dL (32.0-36.0); Mean Corpuscular Hemoglobin 31.4 pg (27.0-31.0); Mean Corpuscular Volume 92.3 fL (78.0-98.0); Mean Platelet Volume 7.3 fL (7.4-10.4); Platelet Count 303 thou/uL (130-400); RBC Distribution Width 11.8 % (11.5-14.5); Red Blood Cell (RBC) Count 3.84 mill/uL (4.20-5.40); White Blood Cell (WBC) Count 7.8 thou/uL (4.8-10.8)
[2020-07-18 01:50] LABS: ALT (SGPT) 21 U/L (8-55); AST (SGOT) 26 U/L (5-34); Albumin 3.7 g/dL (3.4-4.8); Alkaline Phosphatase 56 U/L (40-110); Anion Gap 14 mmol/L (10-20); BUN (Urea Nitrogen) 19 mg/dL (9.8-20.1); Bilirubin, Total 0.2 mg/dL (0.2-1.2); Calc. Creatinine Clearance 0 mL/min (70-130); Carbon Dioxide 24 mmol/L (23-31); Chloride 106 mmol/L (98-107); Estimated GFR-MDRD 75; Globulin 3.4 g/dL (2.4-3.5); Glucose 103 mg/dL (83-110); Potassium 4.2 mmol/L (3.5-5.1); Protein, Total 7.1 g/dL (6.0-8.3); Sodium 140 mmol/L (136-145)
[2020-07-18] MEDS ORDERED: Bacitracin 1 PK ONE (02:00)
--- NOTE | 2020-07-18 02:12 | PDOC.HHP ---
Hospitalist HPI - History of Present Illness Chest pain History of Present Illness: PCP: Mirian Angel The patient is an 80-year-old female with a past medical history significant for HTN, dyslipidemia, PAD, asthma and hypothyroidism that presents to the emergency department via EMS for the above complaint. The patient reports the acute onset of chest pain at approximately 1130 the evening prior to admission. The pain was located in her back and came around to her chest, describes as "like I have a metal band around my chest". The pain is constant, exacerbated and relieved by nothing. She reports associated shortness of breath, nausea and right lower extremity "felt cold". She denies history of DVT/PE. No known trauma or injury or groin pain. Denies any illicit drug use. Has a history of asthma. Denies any wheezing, cough or fever. She denies tearing shearing pain or focal motor deficit. She denies heart palpitations, lower extremity swelling, lightheadedness. She denies nausea, vomiting, diarrhea. EMS was called. Upon arrival, the patient was found to be hypertensive with normal pulse, normal respirations, 94% on room air. She was given 240 mg of aspirin, 1 sublingual nitro glycerin and Zofran. She reports that her chest pain had resolved, however, she still felt mildly short of breath. She was placed on 4 L nasal cannula with an oxygen saturation of 97%. She was taken to the hospital for further evaluation. Patient reports echocardiogram by Dr. Pedersen last week. Reports that Dr. Pedersen was going to determine whether the patient needed a cardiac stress silvestre t or a cardiac catheterization in the upcoming weeks. ED Course: VITAL SIGNS SatJul 18, 2020 00:47 FLORENTINO Blair Nazish Pulse: 85, Resp: 11, Temp: 97.7 (Oral), Pain: 0, O2 sat: 95 on (Room Air), Time: 07/18/2020 00:47. VITAL SIGNS SatJul 18, 2020 00:54 FLORENTINO Blair Nazish BP: 201/95, Time: 07/18/2020 00:54. Medication administration: cloNIDine HCl 0.1 mg Oral Given 01:08 07/18/2020 Hospitalist ROS - Review of Systems All other systems reviewed; all pertinent +/- noted in HPI/Subj - Medication Medications: losartan tablet : Strength - 25 mg : ORAL Patient Dose: 25 mg p.o. daily. estradiol oral tablet : Strength - 2 mg : ORAL Patient Dose: 0.5 mg p.o. daily Simvastatin 40 mg p.o. nightly Synthroid 25 mcg p.o. every morning Fatemeh 180 mg p.o. daily HCTZ 25 mg p.o. daily Citalopram 10 mg p.o. daily. Isosorbide mononitrate unknown dosage Aspirin 81 mg p.o. daily Symbicort 2 puffs inhaled twice daily Allergies: Clindamycin, Spiriva Respimat, [id number] Reductase Inhibitors, tiotropium (Unconfirmed) Hospitalist History - Past Medical History Source: patient, RN notes reviewed Cardiac: reports: HTN, UT, Hyperlipidemia, Other (PAD) Pulmonary: reports: asthma Endocrine: reports: Hypothyroidism - Past Surgical History Past Surgical History: reports: Appendectomy, Hysterectomy, Other (C2-C6 fusion, fibroid tumor removal) - Social History Smoking Status: Former smoker (Quit greater than 30 years ago) Alcohol: reports: None Drugs: reports: none Living Situation: With Family Activity level: independent ambulation - Exam General Appearance: NAD, awake alert Eye: anicteric sclera ENT: normocephalic atraumatic Neck: supple, symmetric, no JVD Heart: RRR, no murmur, no gallops, normal peripheral pulses Respiratory: CTAB, no wheezes, no rales, no ronchi, normal chest expansion, no tachypnea Gastrointestinal: soft, non-tender, normal bowel sounds, no bruit, no guarding, no rigidity Extremities: no cyanosis, no edema Extremities - other findings: Bilateral palpable radial and pedal pulses. Skin: no rashes Neurological: no weakness, no focal deficits Psychiatric: normal affect, A&O x 3 Hospitalist Results - Labs Result Diagrams: 07/18/20 00:49 07/18/20 00:49 Lab results: WBC 7.8 thou/uL (4.8-10.8) 07/18/20 00:49 Hgb 12.1 g/dL (12.0-16.0) 07/18/20 00:49 Hct 35.4 % (36.0-47.0) L 07/18/20 00:49 MCV 92.3 fL (78.0-98.0) 07/18/20 00:49 Plt Count 303 thou/uL (130-400) 07/18/20 00:49 Neutrophils % 55.1 % (42.0-75.0) 07/18/20 00:49 Sodium 140 mmol/L (136-145) 07/18/20 00:49 Potassium 4.2 mmol/L (3.5-5.1) 07/18/20 00:49 Chloride 106 mmol/L (98-107) 07/18/20 00:49 Carbon Dioxide 24 mmol/L (23-31) 07/18/20 00:49 BUN 19 mg/dL (9.8-20.1) 07/18/20 00:49 Creatinine 0.74 mg/dL (0.6-1.1) 07/18/20 00:49 Glucose 103 mg/dL (83-110) 07/18/20 00:49 Calcium 9.0 mg/dL (7.8-10.44) 07/18/20 00:49 Total Bilirubin 0.2 mg/dL (0.2-1.2) 07/18/20 00:49 AST 26 U/L (5-34) 07/18/20 00:49 ALT 21 U/L (8-55) 07/18/20 00:49 Alkaline Phosphatase 56 U/L (40-110) 07/18/20 00:49 Troponin I Less than 0.010 ng/mL (< 0.028) 07/18/20 00:49 Serum Total Protein 7.1 g/dL (6.0-8.3) 07/18/20 00:49 Albumin 3.7 g/dL (3.4-4.8) 07/18/20 00:49 - EKG Interpretation EKG: Normal sinus rhythm, first-degree AV block, ST depression inferior and lateral leads, no ST elevations - Radiology Interpretation Chest x-ray Status: pending Hospitalist H&P A/P - Problem (1) Chest pain Code(s): R07.9 - CHEST PAIN, UNSPECIFIED Status: Acute (2) Shortness of breath Code(s): R06.02 - SHORTNESS OF BREATH Status: Acute (3) Hypertension Code(s): I10 - ESSENTIAL (PRIMARY) HYPERTENSION Status: Chronic (4) Hypothyroidism Code(s): E03.9 - HYPOTHYROIDISM, UNSPECIFIED Status: Chronic (5) Dyslipidemia Code(s): E78.5 - HYPERLIPIDEMIA, UNSPECIFIED Status: Chronic (6) Asthma Code(s): J45.909 - UNSPECIFIED ASTHMA, UNCOMPLICATED Status: Chronic (7) Anxiety and depression Code(s): F41.9 - ANXIETY DISORDER, UNSPECIFIED; F32.9 - MAJOR DEPRESSIVE DISORDER, SINGLE EPISODE, UNSPECIFIED Status: Chronic - Plan Plan: 80/F with PMH HTN, HLD, PAD, hypothyroidism and asthma presents for chest pain. Admit to telemetry floor, observation status. Expected length of stay less than 2 midnights. Presented hypertensive with NL HR, RR, SPO2, afebrile. EKG NSR, first-degree AV block, ST depression inferior and lateral leads. Repeat EKG normal sinus rhythm, first-degree AV block, no ST changes. CXR pending. Troponin negative. #Chest pain Heart score 6, Wells PE score 0. Continue aspirin and start statin. Consult cardiology. N.p.o. Trend troponins, check TSH, FLP, mag level, BMP. Patient reports recent echocardiogram with Dr. Pedersen. #Shortness of breath Appears more cardiac related. Reports history of asthma, well controlled with Symbicort. Reports PFT with Dr. You, no history COPD. #Hypertension Presented hypertensive. Given clonidine in the ED. Upon assessment, BP well controlled. We will continue to monitor and add as needed antihypertensives as necessary. We will restart patient's home dose of losartan. We will hold home dose of Lasix for now. #Hypothyroidism Check TSH. Restart Synthroid 25 mcg home medication. #Dyslipidemia Check FLP. Restart home dose of simvastatin. #Asthma Reports well controlled on Symbicort. #Anxiety and depression New diagnosis. Recently started on citalopram. Denies SI/HI. Restart home dose of citalopram. SCDs for DVT prophylaxis. No GI prophylaxis. Full code. Discussed the case with Dr. Graf.
[2020-07-18] MEDS ORDERED: Nitroglycerin 0.4 MG TAB (25 Tab Bottle) SL PRN (03:01)
[2020-07-18] MEDS ORDERED: Morphine 2 MG/ML VIAL SLOW IVP PRN (03:02)
[2020-07-18] MEDS ORDERED: Ondansetron PF 4 MG/2 ML Vial IVP PRN (03:06)
[2020-07-18] MEDS ORDERED: Acetaminophen 325 MG TAB PO PRN (03:06)
[2020-07-18] MEDS ORDERED: Ondansetron ODT 4 MG TAB PO PRN (03:06)
[2020-07-18 04:25] VITALS: BMI 30.9
[2020-07-18 05:00] LABS: #Basophils 0.1 thou/uL (0.0-0.2); #Eosinphils 0.2 thou/uL (0.0-0.7); #Lymphocytes 2.3 thou/uL (1.20-3.40); #Monocytes 0.6 thou/uL (0.11-0.59); #Neutrophils 3.2 thou/uL (1.40-6.50); %Basophils 1.4 % (0.0-1.0); %Eosinophils 3.7 % (0.0-10.0); %Lymphocytes 35.9 % (21.0-51.0); %Monocytes 8.6 % (0.0-10.0); %Neutrophils 50.3 % (42.0-75.0); Hemoglobin 11.1 g/dL (12.0-16.0); Mean Corpuscular Hemoglobin 29.8 pg (27.0-31.0); Mean Corpuscular Volume 93.3 fL (78.0-98.0); Mean Platelet Volume 6.8 fL (7.4-10.4); Platelet Count 299 thou/uL (130-400); RBC Distribution Width 11.8 % (11.5-14.5); Red Blood Cell (RBC) Count 3.71 mill/uL (4.20-5.40); White Blood Cell (WBC) Count 6.4 thou/uL (4.8-10.8)
[2020-07-18] MEDS: Levothyroxine Sodium 25 MCG TAB PO SCH (05:10)
[2020-07-18 05:19] LABS: Anion Gap 11 mmol/L (10-20); BUN (Urea Nitrogen) 18 mg/dL (9.8-20.1); Calc. Creatinine Clearance 86 mL/min (70-130); Calcium 8.5 mg/dL (7.8-10.44); Carbon Dioxide 27 mmol/L (23-31); Cardiac Risk 5.4 (Less than 4.5); Chloride 107 mmol/L (98-107); Cholesterol 247 mg/dl (< 200 Desired); Estimated GFR-MDRD 84; Glucose 106 mg/dL (83-110); HDL Cholesterol 46 mg/dL (>60 Neg Risk); LDL Cholesterol, Calculated 162 mg/dL; Magnesium 2.2 mg/dL (1.6-2.6); Potassium 3.9 mmol/L (3.5-5.1); Sodium 141 mmol/L (136-145); Triglycerides 193 mg/dL (Less than 150)
[2020-07-18 07:07] LABS: Troponin I Less than 0.010 ng/mL (< 0.028)
[2020-07-18] MEDS ORDERED: Aspirin 325 mg Enteric Coated Tablet PO SCH (09:00)
--- NOTE | 2020-07-18 09:01 | RAD ---
PORTABLE CHEST: Date: 07/18/2020 PROVIDED CLINICAL HISTORY: Chest pain. FINDINGS: Comparison with 12/26/2019. Cardiac and mediastinal silhouette is within normal limits. Atherosclerotic vascular calcification in volves the aortic arch. No focal consolidation, pleural fluid, or pneumothorax apparent. IMPRESSION: No evidence for an acute cardiopulmonary process. POS: OFF
[2020-07-18] MEDS ORDERED: Heparin 10,000 UNITS/ 10 ML VIAL ONE (09:45)
[2020-07-18] MEDS ORDERED: Lidocaine 1% (PF) 30 ML VIAL ONE ×2 (09:45→11:16)
[2020-07-18] MEDS ORDERED: Nitroglycerin 100MG/250ML BOT 250 ML ONE (09:45)
[2020-07-18] MEDS ORDERED: Verapamil 5 MG/2 ML VIAL ONE (09:46)
[2020-07-18] MEDS ORDERED: Communication Order-Pharmacy FS SCH (10:15)
[2020-07-18] MEDS: Losartan 25 MG TAB PO SCH (10:30)
[2020-07-18] MEDS: Citalopram 10 MG TAB PO SCH (10:32)
[2020-07-18] MEDS: Sodium Chloride 0.9% 1,000 ML IV SCH ×2 (10:34→21:21)
[2020-07-18] MEDS ORDERED: Aspirin 81 mg Enteric Coated Tablet PO SCH (10:45)
[2020-07-18 11:10] LABS: SARS-CoV-2 MS2 Positive; SARS-CoV-2 N Gene Negative; SARS-CoV-2 S Gene Negative; SARS-CoV-2 by NAA Not Detected (NotDetected); SARS-CoV-2 orf1ab Negative
[2020-07-18] MEDS ORDERED: Iopamidol 370 76% 100 ML VIAL ONE (11:14)
--- NOTE | 2020-07-18 15:13 | CON ---
DATE OF CONSULTATION: 07/18/2020 REASON FOR CONSULTATION: Chest pain. HISTORY OF PRESENT ILLNESS: Ms. Goyal is a pleasant 80-year-old woman, whom I saw and evaluated in the office. She did have atypical chest pain. She had a normal stress study. She continued to have pain, was concerned about her cardiac status. She is on medical therapy. She then called the office back one day after being seen and decided she wanted to proceed with coronary angiography. PAST MEDICAL HISTORY: Hyperlipidemia, venous insufficiency. MEDICATIONS: Include; 1. Losartan. 2. Symbicort. 3. Estradiol. 4. Isosorbide. 5. Aspirin. 6. Hydrochlorothiazide. 7. Zocor. 8. Citalopram. 9. Kelly-3 fatty acids. 10. Flonase. 11. Synthroid. REVIEW OF SYSTEMS: A 10-point review of systems is reviewed as above, otherwise negative. PHYSICAL EXAMINATION: GENERAL: Patient is a pleasant woman, who is in no acute distress. The patient appears their stated age. VITAL SIGNS: Blood pressure 120/70, pulse 80, respirations 20. NEUROLOGIC: The patient is alert and oriented x3 with no focal neurologic deficits. HEENT: Sclerae without icterus. Mouth has moist mucous membranes with normal pallor. NECK: No JVD. Carotid upstroke brisk. No bruits bilaterally. LUNGS: Clear to auscultation with unlabored respirations. BACK: No scoliosis or kyphosis. CARDIAC: Regular rate and rhythm with normal S1 and S2. No S3 or S4 noted. No significant rubs, murmurs, thrills, or gallops noted throughout the precordium. PMI is not displaced. There is no parasternal heave. ABDOMEN: Soft, nontender, nondistended. No peritoneal signs present. No hepatosplenomegaly. No abnormal striae. EXTREMITIES: 2+ femoral and 2+ dorsalis pedis pulses. No cyanosis, clubbing, or edema. SKIN: No gross abnormalities. PERTINENT LABS: CK troponin negative. IMPRESSION: Recurrent chest pain. RECOMMENDATIONS: Ms. Goyal recently was admitted for recurrent chest pain. We will recommend coronary angiography with possible PCI. I discussed procedure in full detail with Ms. Goyal. Risks include, but not limited to the following: , stroke, PA, need for emergency surgery, loss of limb, bleeding, and infection, as well as a reaction to the dye causing kidney failure and needing long-term dialysis. I also discussed the risks of PCI to include all of the above including coronary dissection and perforation in addition to acute stent thrombosis and restenosis. All questions about the procedure were answered. Given the above, the patient agreed to proceed with coronary angiography and possible PCI. All questions answered. Given the above, the patient agreed to proceed with above procedure. Job ID: [id number]
[2020-07-18] MEDS ORDERED: FLU VACC QS2020-21(65YR UP)/PF 240 MCG/0.7 ML SYRINGE IM ONE (21:00)
[2020-07-18] MEDS ORDERED: Atorvastatin Calcium 20 MG TAB PO SCH (21:00)
[2020-07-19] MEDS: Sodium Chloride 0.9% 1,000 ML IV SCH (03:08)
[2020-07-19 04:25] LABS: #Basophils 0.1 thou/uL (0.0-0.2); #Eosinphils 0.2 thou/uL (0.0-0.7); #Lymphocytes 1.7 thou/uL (1.20-3.40); #Monocytes 0.6 thou/uL (0.11-0.59); #Neutrophils 3.3 thou/uL (1.40-6.50); %Basophils 1.5 % (0.0-1.0); %Eosinophils 3.6 % (0.0-10.0); %Lymphocytes 28.6 % (21.0-51.0); %Monocytes 9.8 % (0.0-10.0); %Neutrophils 56.4 % (42.0-75.0); Hemoglobin 11.7 g/dL (12.0-16.0); Mean Corpuscular HGB CONC 33.3 g/dL (32.0-36.0); Mean Platelet Volume 6.8 fL (7.4-10.4); Platelet Count 299 thou/uL (130-400); RBC Distribution Width 11.7 % (11.5-14.5); Red Blood Cell (RBC) Count 3.78 mill/uL (4.20-5.40); White Blood Cell (WBC) Count 5.8 thou/uL (4.8-10.8)
[2020-07-19 04:50] LABS: Anion Gap 11 mmol/L (10-20); BUN (Urea Nitrogen) 18 mg/dL (9.8-20.1); Calc. Creatinine Clearance 82 mL/min (70-130); Calcium 8.7 mg/dL (7.8-10.44); Carbon Dioxide 28 mmol/L (23-31); Chloride 106 mmol/L (98-107); Estimated GFR-MDRD 80; Glucose 106 mg/dL (83-110); Potassium 3.9 mmol/L (3.5-5.1); Sodium 141 mmol/L (136-145)
[2020-07-19] MEDS: Levothyroxine Sodium 25 MCG TAB PO SCH (05:37)
[2020-07-19 08:19] VITALS: BP 171/73; TEMP 98.6
[2020-07-19] MEDS: Losartan 25 MG TAB PO SCH (08:20)
[2020-07-19] MEDS: Citalopram 10 MG TAB PO SCH (08:20)
[2020-07-19] MEDS ORDERED: Aspirin 81 mg Enteric Coated Tablet PO SCH (09:00)
--- NOTE | 2020-07-19 09:51 | PRG ---
DATE OF SERVICE: 07/19/2020 SUBJECTIVE: Ms. Goyal is doing well. No current complaints. She was kept overnight due to continued bleeding from her radial. Radial appears good this morning. She does have some mild induration, but O2 saturation of 95%. OBJECTIVE: VITAL SIGNS: Blood pressure 130/60, pulse 70 afebrile. LUNGS: Clear to auscultation. HEART: Regular rate and rhythm. ABDOMEN: Soft, nontender, and nondistended. EXTREMITIES: No edema. IMPRESSION: 1. Chest pain. 2. No significant coronary artery disease. RECOMMENDATIONS: Okay for discharge from my standpoint. I would recommend warm compresses to the arm and use some compression if needed. She has no current pain noted to the arm. We will follow up on Saturday with Ms. Goyal. Job ID: [id number]
--- NOTE | 2020-07-19 17:08 | DIS ---
DATE OF ADMISSION: 07/18/2020 DATE OF DISCHARGE: 07/19/2020 DISCHARGE DISPOSITION: To home. PRIMARY DISCHARGE DIAGNOSIS: Chest pain, which is noncardiac. SECONDARY DISCHARGE DIAGNOSES: Hypertension, dyslipidemia, asthma, hypothyroidism. PROCEDURES DONE DURING HOSPITALIZATION: Chest x-ray done, showed no acute cardiopulmonary abnormality. Cardiac catheterization done by Dr. Pedersen on 07/18/2020 showed no significant coronary artery disease. H and H 11 and 35, platelet count 299, MCV is 93, BUN 18, creatinine 0.7. Troponin x3 negative. Total cholesterol 247, triglycerides 193, HDL 46, LDL 162, TSH 3.33. COVID-19 PCR was not detected on 07/18/2020. DISCHARGE MEDICATIONS: 1. Celexa 10 mg p.o. daily. 2. Estradiol 0.5 mg p.o. daily. 3. Hydrochlorothiazide 25 mg p.o. daily. 4. Losartan 25 mg p.o. daily. 5. Multivitamin one tablet once daily. 6. Symbicort inhaler 2 puffs twice daily. 7. Levothyroxine to use as before. The same dose on alternate days. 8. Zocor 40 mg p.o. at bedtime. 9. Albuterol inhaler q.i.d. p.r.n. ALLERGIES: TO CLINDAMYCIN AND TIOTROPIUM. DISCHARGE PLAN: The patient to follow up with Mirian Angel, nurse practitioner in [address] Pedersen in 3 to 4 weeks. BRIEF COURSE DURING HOSPITALIZATION: The patient initially came to ER with complaints of chest pain. In view of multiple risk factors, the patient was placed under observation on telemetry. She has had consultation with Dr. Pedersen. After having consultation with the patient, Dr. Pedersen took Ms. Goyal for cardiac catheterization. This showed no significant coronary artery disease. She had right radial approach done. Postprocedure, the patient has had some oozing with deflation of pressure postprocedure; hence, the patient was observed overnight. She is hemodynamically stable and has been cleared for discharge today. Please note, I have seen and examined the patient on the day of discharge. Job ID: [id number]
== END 2020-07-19 11:44 | disposition home or self-care (01) ==
LOC: ERS 00:44 → 2NO 02:18
PROVIDERS: ADMIT Internal Medicine; ATTEND Internal Medicine
PROC: 4A023N7 Measurement of Cardiac Sampling and Pressure, Left Heart, Percutaneous Approach (ICD-10-PCS; principal; 2020-07-18)
PROC: B2111ZZ Fluoroscopy of Multiple Coronary Arteries using Low Osmolar Contrast (ICD-10-PCS; 2020-07-18)
DX: R07.89 Other chest pain (principal); R06.02 Shortness of breath; I10 Essential (primary) hypertension; E78.5 Hyperlipidemia, unspecified; J45.909 Unspecified asthma, uncomplicated; E03.9 Hypothyroidism, unspecified; I25.2 Old myocardial infarction; F41.9 Anxiety disorder, unspecified; F32.9 Major depressive disorder, single episode, unspecified; I73.9 Peripheral vascular disease, unspecified; I44.0 Atrioventricular block, first degree; Z23 Encounter for immunization; Z87.891 Personal history of nicotine dependence; Z79.899 Other long term (current) drug therapy; Z88.1 Allergy status to other antibiotic agents; Z88.8 Allergy status to other drugs, medicaments and biological substances; Z20.828 Contact with and (suspected) exposure to other viral communicable diseases
CPT/HCPCS: 36600; 71045; 80048 ×2; 80061; 83735; 83880; 84484 ×2; 85025; 90662; 93005; 93454; 94760 ×2; 99285; G0008; G0378 ×3; U0003; 36415; 80053; 84443; 87635; 90471; J1644; J2001; Q9967

== ENCOUNTER 2020-11-03 14:24 | Outpatient (CLI) | payer MEDICARE ==
--- NOTE | 2020-11-03 17:43 | RAD ---
BILATERAL HIPS 2 VIEWS: Date: 11/03/2020 HISTORY: Hip pain. FINDINGS: There are some minimal arthritic changes of both hips. No significant joint space narrowing or osteop hytic change. No fracture. The bones appear slightly demineralized. IMPRESSION: Very mild arthritic changes of the hips. POS: PASCALE
--- NOTE | 2020-11-03 17:45 | RAD ---
LUMBAR SPINE SERIES 3 VIEWS: Date: 11/03/2020 HISTORY: Back pain. FINDINGS: There are severe arthritic changes of the spine. Marked degenerative disc narrowing from the L3-4 to L5-S1 levels. Marked scoliotic change convex to the right. Pedicles are intact. Degenerative facet ch anges are noted. Vascular calcifications are present. Calcification overlying the left kidney could r epresent a renal calculus. IMPRESSION: Scoliosis and severe arthritic changes of the spine. POS: PASCALE
== END 2020-11-03 14:25 | disposition home or self-care (01) ==
LOC: RAD-FRANK 14:24
PROVIDERS: ATTEND Nurse Practitioner Family
DX: M54.5 Low back pain (principal); M19.90 Unspecified osteoarthritis, unspecified site; M25.559 Pain in unspecified hip; M41.9 Scoliosis, unspecified; M47.816 Spondylosis without myelopathy or radiculopathy, lumbar region
CPT/HCPCS: 72100; 73521

== ENCOUNTER 2021-02-09 12:41 | Emergency (ER) | payer MEDICARE | END 2021-02-09 14:35 | disposition home or self-care (01) | LOC: ERS 12:41 | DX: R60.0 Localized edema (principal); I73.9 Peripheral vascular disease, unspecified; J45.909 Unspecified asthma, uncomplicated; E03.9 Hypothyroidism, unspecified; E78.5 Hyperlipidemia, unspecified ==

== ENCOUNTER 2021-06-28 09:48 | Outpatient (CLI) | payer MEDICARE | END 2021-06-28 09:49 | disposition home or self-care (01) | LOC: RAD-FRANK 09:48 | PROVIDERS: ATTEND Nurse Practitioner Family | DX: D72.828 Other elevated white blood cell count (principal); D64.9 Anemia, unspecified | CPT/HCPCS: 71046 ==

== ENCOUNTER 2021-08-09 12:57 | Outpatient (CLI) | payer MEDICARE | END 2021-08-09 12:58 | disposition home or self-care (01) | LOC: BICRAD 12:57 | PROVIDERS: ATTEND Physician Assistant | DX: R09.89 Other specified symptoms and signs involving the circulatory and respiratory systems (principal) | CPT/HCPCS: 71046 ==

== ENCOUNTER 2022-03-02 10:29 | Outpatient (CLI) | payer MEDICARE | END 2022-03-02 10:30 | disposition home or self-care (01) | LOC: BICULT 10:29 | PROVIDERS: ATTEND Nurse Practitioner Family | DX: I73.9 Peripheral vascular disease, unspecified (principal); E78.49 Other hyperlipidemia; I10 Essential (primary) hypertension; M54.50 Low back pain, unspecified; M19.90 Unspecified osteoarthritis, unspecified site; E03.4 Atrophy of thyroid (acquired); F33.1 Major depressive disorder, recurrent, moderate; J43.9 Emphysema, unspecified; Z87.09 Personal history of other diseases of the respiratory system; M79.605 Pain in left leg; M79.604 Pain in right leg | CPT/HCPCS: 93970 ==

== ENCOUNTER 2022-05-04 11:28 | Outpatient (CLI) | payer MEDICARE | END 2022-05-04 11:29 | disposition home or self-care (01) | LOC: SCSMRI 11:28 | PROVIDERS: ATTEND Nurse Practitioner Family | DX: R55 Syncope and collapse (principal); I73.9 Peripheral vascular disease, unspecified; E78.49 Other hyperlipidemia; R68.89 Other general symptoms and signs; I67.82 Cerebral ischemia | CPT/HCPCS: 70551 ==